=== PATIENT | male | born 1955 | race Caucasian/White ===

== ENCOUNTER → 2018-11-11 12:42 | Outpatient (POV) | payer MEDICARE, SELFPAY ==
--- NOTE | 2018-11-11 13:09 | HMH.PAINSOAP ---
[facility] Pain Management SOAP Note Subjective:: Patient is a pleasant 63-year-old white male who we are treating for pain secondary to degenerative disc disease lumbar spine with lumbar facet arthropathy lumbar spondylosis and lumbar postlaminectomy syndrome. Patient has an intrathecal pain pump. He is currently at 6 mg of morphine a day. He states it helps his pain significantly he rates his pain a 5 out of 10. He does have to sometimes take a Tylenol. He is being filled with basic home infusion we will be switching him to advanced infusion solutions. Patient is aware of this. ROS General: no recent weight change, no fever, no sleep disturbances Respiratory: no cough, no shortness of air, no recurring pulmonary infections Cardiovascular/Peripheral Vascular: No chest pain, No palpitations, no edema, no shortness of breath. Gastrointestinal: no incontinence, normal bowel movements reported Genitourinary: no incontinence Musculoskeletal: Back pain, leg pain Psychiatric: normal mood/ affect Neurological: [denies weakness in extremities], [denies balance issues] Objective:: Physical Exam General: Alert and oriented x3, no acute distress, pleasant and cooperative, [on room air] Lungs: Resps E/U, Symmetrical chest expansion, Eyes: PERRL Musculoskeletal: Flexion and extension of lumbar spine somewhat guarded secondary to pain, deep tendon reflexes normal, strength in upper and lower extremities [5/5], [abnormal gait noted] Neurological: speech clear, physician compensation analyst equal, no gross sensory deficits Assessment:: Degenerative disc disease lumbar spine with lumbar radiculopathy and postlaminectomy syndrome Plan:: We will switch the patient over to [facility]. We will send her for drug screen today. We will also increase his concentration to 30 mg/mL of morphine at his next intrathecal pain pump refill. Patient will be seen again in [address] Benavides has reviewed this note and agrees with this plan of care. This note was dictated using voice recognition software and may contain errors or omissions
--- NOTE | 2018-11-11 13:12 | P.CONS_ITS ---
[facility] Pain Management SOAP Note Subjective:: Patient is a pleasant 63-year-old white male who we are treating for pain secondary to degenerative disc disease lumbar spine with lumbar facet arthropathy lumbar spondylosis and lumbar postlaminectomy syndrome. Patient has an intrathecal pain pump. He is currently at 6 mg of morphine a day. He states it helps his pain significantly he rates his pain a 5 out of 10. He does have to sometimes take a Tylenol. He is being filled with basic home infusion we will be switching him to advanced infusion solutions. Patient is aware of this. ROS General: no recent weight change, no fever, no sleep disturbances Respiratory: no cough, no shortness of air, no recurring pulmonary infections Cardiovascular/Peripheral Vascular: No chest pain, No palpitations, no edema, no shortness of breath. Gastrointestinal: no incontinence, normal bowel movements reported Genitourinary: no incontinence Musculoskeletal: Back pain, leg pain Psychiatric: normal mood/ affect Neurological: [denies weakness in extremities], [denies balance issues] Objective:: Physical Exam General: Alert and oriented x3, no acute distress, pleasant and cooperative, [on room air] Lungs: Resps E/U, Symmetrical chest expansion, Eyes: PERRL Musculoskeletal: Flexion and extension of lumbar spine somewhat guarded secondary to pain, deep tendon reflexes normal, strength in upper and lower extremities [5/5], [abnormal gait noted] Neurological: speech clear, linux network engineer equal, no gross sensory deficits Assessment:: Degenerative disc disease lumbar spine with lumbar radiculopathy and postlaminectomy syndrome Plan:: We will switch the patient over to AIS. We will send her for drug screen today. We will also increase his concentration to 30 mg/mL of morphine at his next intrathecal pain pump refill. Patient will be seen again in [address] Benavides has reviewed this note and agrees with this plan of care. This note was dictated using voice recognition software and may contain errors or omissions
[2018-11-11 13:36] VITALS: BP 133/78; PULSE 79; RESP 18; O2SAT 98; BMI 23.7
[2018-11-11 14:18] LABS: Amphetamine/Metha Screen,Urine Negative ng/mL (<1000); Barbiturates Screen,Urine Negative ng/mL (<200); Benzodiazepines Screen,Urine Negative ng/mL (<200); Cannabinoid Screen,Urine Negative ng/mL (<50); Cocaine Screen,Urine Negative ng/mL (<300); Methadone Screen,Urine Negative ng/mL (<300); Opiate Screen,Urine Positive ng/mL (<300); Phencyclidine Screen,Urine Negative ng/mL (<25)
[2018-11-18 12:09] LABS: Codeine Negative (Cutoff=100); Hydrocodone Negative (Cutoff=100); Hydromorphone Negative (Cutoff=100); Morphine Positive (.)
[2018-11-18 12:58] LABS: Opiates Positive (.)
== END ==
PROVIDERS: Visit Provider Clinical Nurse Specialist Family Health
DX: M51.16 Intervertebral disc disorders with radiculopathy, lumbar region (principal); M96.1 Postlaminectomy syndrome, not elsewhere classified; Z79.899 Other long term (current) drug therapy
CPT/HCPCS: 80305; 80361; 80365; 99212; G0480

== ENCOUNTER → 2019-05-27 11:18 | Outpatient (POV) | payer MEDICARE, SELFPAY ==
[2019-05-27 12:43] VITALS: BP 117/83; PULSE 66; RESP 18; O2SAT 99; BMI 22.4
--- NOTE | 2019-05-27 12:52 | HMH.PAINSOAP ---
[facility] Pain Management SOAP Note Subjective:: Patient is a pleasant 64-year-old white male who presents today for a six-month follow-up visit. Patient has a intrathecal pain pump going at 0.78 mg every 2 hours for total daily dose of 9.36 mg of morphine a day he rates his pain a 6 out of 10 and states overall is doing well patient denies side effects to his medication. [facility] #[id number] reviewed and appropriate. Patient can continue with his home refill he is been instructed to call our office if he has any issues. ROS General: no recent weight change, no fever, no sleep disturbances Respiratory: no cough, no shortness of air, no recurring pulmonary infections Cardiovascular/Peripheral Vascular: No chest pain, No palpitations, no edema, no shortness of breath. Gastrointestinal: no new onset incontinence, normal bowel movements reported Genitourinary: no new onset incontinence Musculoskeletal: Back pain, leg pain Psychiatric: normal mood/ affect Neurological: [denies new onset weakness in extremities], [denies new onset balance issues] Objective:: Physical Exam General: Alert and oriented x3, no acute distress, pleasant and cooperative, [on room air] Lungs: Resps E/U, Symmetrical chest expansion, Eyes: PERRL Musculoskeletal: Flexion and extension of lumbar spine somewhat guarded secondary to pain, deep tendon reflexes normal, strength in upper and lower extremities [5/5], [abnormal gait noted] Neurological: speech clear, grease refining supervisor equal, no gross sensory deficits Assessment:: Degenerative disc disease lumbar spine with lumbar radiculopathy post laminectomy syndrome Plan:: We will see the patient back in 6 months reassess his symptoms at that time he is been instructed to call the office if he has any issues prior to his next appointment. Dr. Benavides has reviewed this note and agrees with this plan of care. This note was dictated using voice recognition software and may contain errors or omissions [facility] History I have reviewed the patient's past medical history: Yes *Have you ever received a pneumonia vaccine?: Yes *Have you received a flu vaccine this season?: Yes - *Social History *Occupational Status:: other *Travel in the last 8 weeks: None Family Hx:: Non-contributory
--- NOTE | 2019-05-27 12:56 | P.CONS_ITS ---
[facility] Pain Management SOAP Note Subjective:: Patient is a pleasant 64-year-old white male who presents today for a six-month follow-up visit. Patient has a intrathecal pain pump going at 0.78 mg every 2 hours for total daily dose of 9.36 mg of morphine a day he rates his pain a 6 out of 10 and states overall is doing well patient denies side effects to his medication. [facility] #[id number] reviewed and appropriate. Patient can continue with his home refill he is been instructed to call our office if he has any issues. ROS General: no recent weight change, no fever, no sleep disturbances Respiratory: no cough, no shortness of air, no recurring pulmonary infections Cardiovascular/Peripheral Vascular: No chest pain, No palpitations, no edema, no shortness of breath. Gastrointestinal: no new onset incontinence, normal bowel movements reported Genitourinary: no new onset incontinence Musculoskeletal: Back pain, leg pain Psychiatric: normal mood/ affect Neurological: [denies new onset weakness in extremities], [denies new onset balance issues] Objective:: Physical Exam General: Alert and oriented x3, no acute distress, pleasant and cooperative, [on room air] Lungs: Resps E/U, Symmetrical chest expansion, Eyes: PERRL Musculoskeletal: Flexion and extension of lumbar spine somewhat guarded se condary to pain, deep tendon reflexes normal, strength in upper and lower extremities [5/5], [abnormal gait noted] Neurological: speech clear, agency appointments supervisor equal, no gross sensory deficits Assessment:: Degenerative disc disease lumbar spine with lumbar radiculopathy post laminectomy syndrome Plan:: We will see the patient back in 6 months reassess his symptoms at that time he is been instructed to call the office if he has any issues prior to his next appointment. Dr. Benavides has reviewed this note and agrees with this plan of care. This note was dictated using voice recognition software and may contain errors or omissions [facility] History I have reviewed the patient's past medical history: Yes *Have you ever received a pneumonia vaccine?: Yes *Have you received a flu vaccine this season?: Yes - *Social History *Occupational Status:: other *Travel in the last 8 weeks: None Family Hx:: Non-contributory
== END ==
PROVIDERS: PCP Internal Medicine Addiction Medicine; Visit Provider Clinical Nurse Specialist Family Health
DX: M51.16 Intervertebral disc disorders with radiculopathy, lumbar region (principal); M96.1 Postlaminectomy syndrome, not elsewhere classified
CPT/HCPCS: 99212

== ENCOUNTER → 2019-12-01 14:24 | Outpatient (POV) | payer MEDICARE, OTHER, SELFPAY ==
[2019-12-01 15:07] VITALS: BP 134/83; PULSE 82; RESP 18; TEMP 36.6; O2SAT 99; BMI 31.3
--- NOTE | 2019-12-02 07:43 | P.PCN_ITS ---
- Procedure Date: 12/01/19 Time: 15:00 Anesthesiologist:: Noris Pandey APRN Complications:: None Pre-procedure Diagnosis:: Degenerative disc disease lumbar spine with lumbar radiculopathy and spinal stenosis with neurogenic claudication and postlaminectomy syndrome Post-procedure Diagnosis:: Same Indications for Procedure:: Patient is a pleasant 64-year-old white male who presents today for intrathecal pain pump adjustment. He is doing a home refill program and doing well with it. He is currently on a periodic flow every 3 hours. He would like to be switched back to his original 0.78 mg every 2 hours. We will move forward with this. [facility] #[id number] reviewed and appropriate. Patient also wants to discuss the mild procedure. Patient and I discussed an epidurogram we will move forward with this. He is not on any anticoagulation therapy. he rates his pain today a 7 out of 10 which is his baseline Physical Exam General: Alert and oriented x3, no acute distress, pleasant and cooperative, [on room air] Lungs: Resps E/U, Symmetrical chest expansion, Eyes: PERRL Musculoskeletal: Flexion and extension of lumbar spine somewhat guarded secondary to pain, deep tendon reflexes normal, strength in upper and lower extremities [5/5], [abnormal gait noted] Neurological: speech clear, commercial fisher equal, no gross sensory deficits Procedure Details:: Informed consent was obtained and the risk and benefits of the procedure were explained to the patient. The patient was taken to the procedure room where noninvasive monitoring was placed including noninvasive blood pressure cuff and pulse oximeter. Patient's pump was interrogated and reprogrammed. The infusion rate was changed to 0.78 mg every 2 hours of morphine. The patient tolerated the procedure well. Plan and Disposition:: We will set the patient up for an epidurogram to see if he may be a mild candidate. He does have pain when he standing and walking. He has weakness in his legs when he is standing for long periods of time. Patient does have the sit down so he does not fall down. I will follow-up with him after this reassess his symptoms at this time. He is instructed to call the office if he has any issues prior to his next appointment. Dr. Benavides has reviewed this note and agrees with this plan of care. This note was dictated using voice recognition software and may contain errors or omissions
== END ==
PROVIDERS: Visit Provider Clinical Nurse Specialist Family Health
DX: M51.16 Intervertebral disc disorders with radiculopathy, lumbar region (principal); M48.062 Spinal stenosis, lumbar region with neurogenic claudication; M96.1 Postlaminectomy syndrome, not elsewhere classified
CPT/HCPCS: 62368; 99212

== ENCOUNTER 2019-12-12 08:52 | Day surgery (SDC) | payer MEDICARE, OTHER, SELFPAY ==
[2019-12-12 08:54] VITALS: BP 148/87; PULSE 57; RESP 18; TEMP 36.7; O2SAT 100; BMI 23.7
[2019-12-12 09:14] VITALS: BP 145/87; PULSE 58; RESP 18
[2019-12-12 09:16] VITALS: BP 144/78; PULSE 59; RESP 18; O2SAT 99
--- NOTE | 2019-12-12 09:26 | HMH.PMPROC ---
- Procedure Date: 12/12/19 Time: 09:26 Anesthesiologist:: Roverto Benavides MD Complications:: None Pre-procedure Diagnosis:: Postlaminectomy syndrome lumbar spine with lumbar radiculopathy symptoms and increasing pain on the right side with neurogenic claudication symptoms and spinal stenosis Post-procedure Diagnosis:: Same Indications for Procedure:: This patient is a pleasant 64-year-old white male who does have an intrathecal morphine pain pump in place. He is doing well with his pump however he does have some increasing pain on the right side of his lower lumbar area. He also has some significant spinal stenosis with neurogenic claudication symptoms. Were symptoms are on the right. We will do a lumbar epidural steroid injection today to see if this helps with his pain symptoms. We will also do a epidurogram to assess levels of stenosis and candidacy for minimally invasive lumbar decompression. Procedure Details:: Lumbar epidural steroid injection under fluoroscopy Informed consent was obtained and the risk and benefits of the procedure was explained to the patient. The patient was taken to the procedure room. The patient was placed prone on the procedure table. The patient was prepped and draped in sterile fashion. C-arm fluoroscopy was used to view the lumbar spine. Skin and subcutaneous tissues were anesthetized using lidocaine. I placed an 18-gauge epidural needle and advanced into the L4-L5 interspace using fluoroscopic guidance and [id number] to air. After confirmation of needle placement in the epidural space with dye I injected 2 mL of lidocaine 1.5% with Depo-Medrol 80 mg. Patient tolerated the procedure well with no complications. Plan and Disposition:: Based on his epidurogram he is not a candidate for minimally invasive lumbar decompression as his lamina have already been removed and the majority of his lumbar spine from previous surgery. Furthermore most of his pain is in the right lower lumbar area and over the right SI joint. If the lumbar epidural steroid injection does not give him adequate relief then we may plan on a right SI joint injection. He does have tenderness over the right SI joint. He has a positive Sherly's test on the right side. Is positive Jhon test on the right side. He has a positive SI joint compression test on the right side. Also he may be a candidate for L4-L5 and L5-S1 facet joint injections on the right side if he still has some residual pain. We will follow-up with him and reevaluate his symptoms and plan on right SI joint injection under fluoroscopy first if he still has pain.
[2019-12-12 09:35] VITALS: BP 135/89; PULSE 55; RESP 20; O2SAT 99
== END 2019-12-12 09:35 | disposition home or self-care (01) ==
LOC: SC.PAINP 08:54
PROVIDERS: PCP Internal Medicine Addiction Medicine; Visit Provider Anesthesiology
DX: M96.1 Postlaminectomy syndrome, not elsewhere classified (principal); M51.16 Intervertebral disc disorders with radiculopathy, lumbar region; M48.062 Spinal stenosis, lumbar region with neurogenic claudication; I10 Essential (primary) hypertension; Z85.46 Personal history of malignant neoplasm of prostate; Z90.79 Acquired absence of other genital organ(s); Z79.899 Other long term (current) drug therapy
CPT/HCPCS: 62323; J1040; Q9966

== ENCOUNTER 2020-02-20 13:51 | Day surgery (SDC) | payer MEDICARE, OTHER, SELFPAY ==
[2020-02-20 14:11] VITALS: BP 137/86; PULSE 61; RESP 18; TEMP 36.9; O2SAT 97; BMI 23.7
[2020-02-20 14:26] VITALS: BP 125/79; PULSE 68; RESP 18; O2SAT 98
[2020-02-20 14:27] VITALS: BP 130/74; PULSE 74; RESP 18; O2SAT 99
--- NOTE | 2020-02-20 14:28 | HMH.PMPROC ---
- Procedure Date: 02/20/20 Time: 14:28 Anesthesiologist:: Roverto Benavides MD Complications:: None Pre-procedure Diagnosis:: Sacroiliitis Post-procedure Diagnosis:: Same Indications for Procedure:: This patient is a pleasant 64-year-old white male who we are treating for low back pain with lumbar radiculopathy symptoms and postlaminectomy syndrome. He does have an intrathecal morphine pain pump. He is doing well with his pump. Most of his pain is on the right side. He is tender over his right SI joint. He did not get any benefit from the lumbar epidural steroid injection. He has a positive Sherly's test on right side. He has a positive Jhon test on right side. Is positive SI joint compression test on right side. We will do a right SI joint injection under fluoroscopy to help him with his pain symptoms. Procedure Details:: Right SI joint injection under fluoroscopy Informed consent was obtained and the risks and benefits of the procedure was going to the patient. Patient was taken to the procedure room. Patient was placed prone on the procedure table. The right hip was prepped using ChloraPrep. The skin and subcutaneous tissues were anesthetized using lidocaine. I placed a 22-gauge spinal needle into the inferior aspect of the right SI joint. Needle placement was confirmed with dye. After this we injected 5 mL bupivacaine 0.25% and Depo-Medrol 40 mg into the right SI joint. The patient tolerated the procedure well with no complication. Plan and Disposition:: We will follow-up with him in 2 weeks. Will reevaluate symptoms at that time.
[2020-02-20 14:38] VITALS: BP 135/80; PULSE 51; RESP 18; O2SAT 97
== END 2020-02-20 14:40 | disposition home or self-care (01) ==
LOC: SC.PAINP 13:52
PROVIDERS: PCP Internal Medicine Addiction Medicine; Visit Provider Anesthesiology
DX: M46.1 Sacroiliitis, not elsewhere classified (principal); I10 Essential (primary) hypertension; Z85.46 Personal history of malignant neoplasm of prostate; Z90.79 Acquired absence of other genital organ(s)
CPT/HCPCS: 27096; G0260; J1040; Q9966

== ENCOUNTER → 2021-04-25 11:16 | Outpatient (POV) | payer MEDICARE, OTHER, SELFPAY ==
[2021-04-25 11:40] VITALS: BP 155/96; PULSE 68; RESP 18; O2SAT 98; BMI 23.0
--- NOTE | 2021-04-25 11:45 | HMH.PAINSOAP ---
[facility] Pain Management SOAP Note Subjective:: Patient is a 65-year-old white male who presents today for follow-up. Patient is an intrathecal home refill patient. He does have morphine at 9.36 mg/day, periodic flow at 0.78 mg every 2 hours. Patient says that he has been told by Dr. Benavides that he is at the highest dose that he can possibly go with morphine and that he does not have any other options. Patient and I did discuss that Dr. Benavides has likely inform the patient that he is at a very high dose of medication with his intrathecal therapy, however, there are other medications that we may possibly use in. Patient is continuing to work and does continue to have significant pain. He says that he did chop wood over the weekend and has worsening pain in his low back. He does rate his pain an 8 out of 10 today. He denies any side effects. He does not want any changes today. Review of Systems General: No recent weight changes, no fever, no sleep disturbances Respiratory: No cough, no shortness of air, no recurring pulmonary infections Cardiovascular/peripheral vascular: No chest pain, no palpitations, no edema, no shortness of breath Gastrointestinal: No new onset incontinence, normal bowel movements reported Genitourinary: No new onset incontinence Musculoskeletal: Low back pain Psychiatric: [Normal mood/affect] Neurological: [Denies weakness in extremities], [denies balance issues] Objective:: Physical exam General: Alert and oriented x3, no acute distress, pleasant and cooperative Lungs: Respirations even and unlabored, symmetrical chest expansion Eyes: PERRL Musculoskeletal: Flexion and extension of lumbar [spine] somewhat guarded secondary to pain, [antalgic gait noted] Neurological: Speech clear, no gross sensory deficit Assessment:: Degenerative disc disease lumbar spine with lumbar radiculopathy symptoms Plan:: Patient does not want any changes today. We did discuss possible change of medication in the pump. He is at a high dose of morphine with 30 mg concentration. He will contact clinic if he decides to undergo change out of medicine. He has been instructed to contact clinic if he has any concerns for his next appointment. He is routinely drug screen to [employer]. Risks and benefits of the medication have been explained in detail to the patient. The patient does understand the risk of dependence on the medication when given over a prolonged period. Patient has been advised of risks of oversedation with the prescribed medication. Narcan has been offered to the paitent in the event of oversedation. Patient has been advised that a family member should also be educated regarding administration of Narcan. The patient has been advised to consult with his/her primary care provider and pharmacist regarding drug-drug interaction of medications currently prescribed. Patient has been prescribed a controlled substance after being counseled on the medication, medication safety, and possible side effects. [facility] report has been obtained and reviewed prior to prescription and found to be appropriate. Opioid contract was reviewed and signed by the patient, and that they have agreed to all of the terms set forth by our compliance program. Patient has been instructed to contact the clinic with any concerns before the next appointment. Dr. Benavides has reviewed this note and agrees with this plan of care. This note was dictated using voice recognition software and make contain errors or omissions. [facility] History I have reviewed the patient's past medical history: Yes Medical History: Reports:: Cancer (prostate) Denies:: Diabetes Mellitus Type 1, Diabetes Mellitus Type 2, MRSA, Seizures *Have you ever received a pneumonia vaccine?: Yes *Have you received a flu vaccine this season?: No Amputation: No Fractures: No - *Social History Smoking Status: Never smoker Alcohol Intake: current Alcohol Intake Frequen
== END ==
PROVIDERS: Visit Provider Clinical Nurse Specialist Family Health
DX: M51.16 Intervertebral disc disorders with radiculopathy, lumbar region (principal)
CPT/HCPCS: 99212; G0463

== ENCOUNTER 2023-04-17 08:09 | Day surgery (SDC) | payer MEDICARE, OTHER, SELFPAY ==
[2023-04-17 08:18] VITALS: BP 132/95; PULSE 73; RESP 20; TEMP 36.8; O2SAT 96; BMI 23.7
--- NOTE | 2023-04-17 09:15 | MR_ITS ---
FINAL REPORT CLINICAL HISTORY: DIGENERATIVE DISC DISEASE left arm pain tingling in finger of left hand FINDINGS: Multiplanar MR imaging of the cervical spine was performed without contrast. Motion on many of the images decreases exam sensitivity. On the sagittal T2-weighted images, disc degeneration is seen throughout. There is no evidence of fracture. The vertebral alignment is normal. The cervical spinal cord has an unremarkable appearance without evidence of mass, edema or syrinx. The cervicomedullary junction is normal. C2-3: There are uncovertebral osteophytes. C3-4: There is an annular bulge with uncovertebral osteophytes. There is moderate bilateral neural foraminal narrowing. C4-5: There is an annular bulge with uncovertebral osteophytes. There is severe bilateral neural foraminal narrowing. There is mild central canal stenosis with an AP thecal sac diameter of 8 mm. C5-6: There is a disc osteophyte complex with a left foraminal disc protrusion causing left C6 nerve root impingement. There is severe bilateral neural foraminal narrowing. C6-7: There is a disc osteophyte complex with severe bilateral neural foraminal narrowing. C7-T1: There is an annular bulge with moderate bilateral neural foraminal narrowing. There is facet arthropathy on the left with adjacent soft tissue edema. IMPRESSION: Left foraminal disc protrusion at C5-C6 causes left C6 nerve root impingement. Multilevel areas of neural foraminal narrowing and central canal stenosis as described. Reviewed, Interpreted and Dictated by Kd Funk III, MD Transcribed by Bertrand Lopez Authenticated and [facility]
[2023-04-17 10:43] VITALS: BP 141/89; PULSE 70; RESP 18; O2SAT 97
[2023-04-17 10:45] VITALS: BP 141/89; PULSE 69; RESP 18; O2SAT 97
[2023-04-17 10:50] VITALS: BP 147/98; PULSE 56
--- NOTE | 2023-04-17 10:52 | EXP.PAIN.PRO ---
Procedure Date: 04/17/23 Time: 10:45 Anesthesiologist:: Nimesh Boyle CRNA Complications:: None Pre-procedure Diagnosis:: Degenerative disc lumbar spine multilevels. Lumbar radiculopathy. Cervical neck pain. Cervical radiculopathy. Post-procedure Diagnosis:: Same. Indications for Procedure:: Patient is a very pleasant 67-year-old male that comes our clinic today for intrathecal pain pump medication removal for the purpose of cervical MRI today. Patient doing very well with his current settings. He has managed with morphine sulfate 30 mg/mL at 9.3600 mg/day. Procedure Details:: Details of procedure explained the patient. The patient taken the procedure room placed in the supine position on the fluoroscopy table. The pump was interrogated. The pump is accessed with ease using 22-gauge inch and half needle and fluoroscopy guidance. 11 mL of solution was withdrawn and labeled. Patient will return post MRI for refill. Patient returns to the procedure clinic for intrathecal pain pump filling. Pump was accessed with ease using fluoroscopy guidance and a 22-gauge inch needle. The pump was filled with 11 mL of solution containing morphine sulfate 30 mg/mL using fluoroscopy guidance. Pump rate will remain the same. 9.3600 mg day. Plan and Disposition:: She tolerated procedure without difficulty. No complications. Patient was discharged without incident.
== END 2023-04-17 10:51 | disposition home or self-care (01) ==
PROVIDERS: PCP Internal Medicine Addiction Medicine; Visit Provider Nurse Anesthetist, Certified Registered
DX: M51.16 Intervertebral disc disorders with radiculopathy, lumbar region (principal); M54.12 Radiculopathy, cervical region; Z97.8 Presence of other specified devices
CPT/HCPCS: 72141; 76376; 95991

== ENCOUNTER → 2023-08-30 14:47 | Outpatient (POV) | payer MEDICARE, OTHER, SELFPAY ==
[2023-08-30 16:09] VITALS: BP 133/86; PULSE 61; RESP 18; O2SAT 98; BMI 23.7
--- NOTE | 2023-08-30 16:28 | EXP.PAIN.SOA ---
[facility] Pain Management SOAP Note Subjective:: Patient is a pleasant 68-year-old male who presents today for MRI follow-up. We are currently treating the patient for degenerative disc disease of cervical and lumbar spine with cervical and lumbar radiculopathy symptoms, chronic pain syndrome lumbar postlaminectomy syndrome. Today he rates his pain a 7 out of 10. Patient states that he continues to have chronic pain in his overall but he is experiencing more pain in his neck with radiating symptoms down his entire left arm. Patient describes this as a aching burning sensation with occasional electrical shock. He does state that he frequently has weakness in his hand and will drop staff. He does state the pain is interfering with his ability to perform activities of daily living such as cooking and cleaning. Patient does have a intrathecal pain pump of morphine 30 mg/mL with a daily dose of 9.36 mg/day. Patient denies any side effects from this medication however states that it is at its end-of-life. Patient states that he has already reviewed over the risk and benefits of having this pump replaced. He states he would like to proceed forward with this option. He states this is his third pump and that it does work well and helps his pain on a day-to-day basis. Patient does currently have the pump in his left abdomen and is been experiencing more seroma regarding it. Patient states that he would prefer that the next pump still be placed in his abdomen but is okay with putting it on the right. Patient does also state when he originally had this pump placed he did end up not feeling like the pump was working well and ended up going and getting additional medication which ended up resulting in him overdosing and having to call the ambulance. Patient does state he still has concerns regarding this episode and that he would like to be placed in overnight observation as a precaution to make sure this does not happen again. Patient does also state he has been to see his neurosurgeon who was stating that he needed cervical surgery however at this time he would like to hold off on this option. His Ramo has been reviewed and is appropriate. Review of Systems: General: No recent weight changes, no fever, no sleep disturbances Respiratory: No cough, no shortness of air, no recurring pulmonary infections Cardiovascular/peripheral vascular: No chest pain, no palpitations, no edema, no shortness of breath Gastrointestinal: No new onset incontinence, normal bowel movements reported Genitourinary: No new onset incontinence Musculoskeletal: Neck pain, left arm pain Psychiatric: [Normal mood/affect] Neurological: [Denies weakness in extremities], [denies balance issues] Objective:: Physical Exam: General: Alert and oriented x3, no acute distress, pleasant and cooperative Lungs: Respirations even and unlabored, symmetrical chest expansion Eyes: PERRL Musculoskeletal: Flexion and extension of cervical [spine] somewhat guarded secondary to pain, [antalgic gait noted] positive Spurling's test Neurological: Speech clear, no gross sensory deficit FINAL REPORT CLINICAL HISTORY: DIGENERATIVE DISC DISEASE left arm pain tingling in finger of left hand FINDINGS: Multiplanar MR imaging of the cervical spine was performed without contrast. Motion on many of the images decreases exam sensitivity. On the sagittal T2-weighted images, disc degeneration is seen throughout. There is no evidence of fracture. The vertebral alignment is normal. The cervical spinal cord has an unremarkable appearance without evidence of mass, edema or syrinx. The cervicomedullary junction is normal. C2-3: There are uncovertebral osteophytes. C3-4: There is an annular bulge with uncovertebral osteophytes. There is moderate bilateral neural foraminal narrowing. C4-5: There is an annular bulge with uncovertebral osteophytes. There is severe bilateral neural foraminal narrowing. There is mild central canal stenosis with an AP thecal sac diameter of 8 mm. C5-6: There is a disc osteophyte complex with a left foraminal disc protrusion causing left C6 nerve root impingement. There is severe bilateral neural foraminal narrowing. C6-7: There is a disc osteophyte complex with severe bilateral neural foraminal narrowing. C7-T1: There is an annular bulge with moderate bilateral neural foraminal narrowing. There is facet arthropathy on the left with adjacent soft tissue edema. IMPRESSION: Left foraminal disc protrusion at C5-C6 causes left C6 nerve root impingement. Multilevel areas of neural foraminal narrowing and central canal stenosis as described. Reviewed, Interpreted and Dictated by Kd Funk III, MD Transcribed by Bertrand Lopez Authenticated and [facility] Assessment:: Degenerative disc disease of cervical and lumbar spine with cervical and lumbar radiculopathy symptoms, chronic pain syndrome, lumbar postlaminectomy syndrome Plan:: Patient is experiencing worsening pain in his neck with radiating symptoms to his left arm down to his hand. Patient did have limited range of motion of his cervical spine along with a positive Spurling's test. I have discussed with patient that he may benefit from a cervical epidural steroid injection. Risk and benefits were discussed with the patient and he would like to proceed forward with this plan of care. Patient is not on any blood thinners. Patient's imaging did show a left C6 nerve root impingement. I have also reviewed over the risk and benefits of the intrathecal pain pump replacement and he would like to proceed forward with this plan of care. I will order the patient a compounded cream. Patient will be scheduled for a GUILLERMINA C5-C6 under fluoroscopy and intrathecal pain pump replacement due to end-of-life. We will contact the patient for time and date of his intrathecal pain pump replacement once we have insurance approval. Patient has been instructed to contact the clinic with any concerns before the next appointment. Dr. Benavides has reviewed this note and agrees with this plan of care. This note was dictated using voice recognition software and make contain errors or omissions. -- It Is medically necessary for this patient to continue to have their intrathecal pump refilled at regular intervals. This patient had an intrathecal pain pump implanted after meeting criteria of chronic intractable pain for greater than 3 months and failing conservative treatments. Patient has committed and been compliant to the treatment plan and all planned follow up care. Since implantation of the intrathecal pain pump, the patient has had decreased pain and been more functional. Oral medications have been reduced including intake of oral opioids. Patient continues to do well with intrathecal therapy with decrease in pain symptoms and increase in functional status. Stopping intrathecal medications can lead to life threatening withdrawal, seizures, cardiac arrest, severe pain, and possible . Pumps that are not refilled at regular intervals can be damages and cause and need for replacement. We continually titrate dose and concentration to optimize pain relief and function. We are limited in concentration for certain drugs to safely deliver medications through the pump and stay within the recommendations from the Polyanalgesic Consensus Committee Guidelines. Depending on dose and concentration these pumps may need to be refilled sooner than 3 months as we titrate. [facility] Disclaimer: The information contained in this section may have been updated after the patient was seen, as this information can be updated by other users. Social History (Updated 04/17/23 @ 08:23 by Bhavana Walker RN) Smoking Status: Never smoker alcohol intake: current current occupational status: retired Travel in the last 8 weeks: None caffeine: Yes
== END ==
PROVIDERS: Visit Provider Nurse Practitioner Family
DX: M50.122 Cervical disc disorder at C5-C6 level with radiculopathy (principal); M51.16 Intervertebral disc disorders with radiculopathy, lumbar region; M96.1 Postlaminectomy syndrome, not elsewhere classified; G89.4 Chronic pain syndrome; Z97.8 Presence of other specified devices
CPT/HCPCS: 99212; G0463

== ENCOUNTER 2023-09-25 09:24 | Day surgery (SDC) | payer MEDICARE, OTHER, SELFPAY ==
[2023-09-25 10:43] VITALS: BP 133/90; PULSE 58; RESP 16; TEMP 36.8; O2SAT 99; BMI 23.7
[2023-09-25 11:04] VITALS: BP 142/99; PULSE 76; RESP 18; O2SAT 98
[2023-09-25] MEDS: methylPREDNISolone ACETATE 80MG/ML VIAL 80 MG (11:04)
[2023-09-25 11:05] VITALS: BP 142/99; PULSE 75; RESP 18; O2SAT 98
[2023-09-25 11:08] VITALS: BP 161/85; PULSE 56; RESP 18; O2SAT 99
--- NOTE | 2023-09-25 11:09 | P.PCN_ITS ---
Procedure Date: 09/25/23 Time: 11:00 Anesthesiologist:: Nimesh Boyle CRNA Complications:: None Pre-procedure Diagnosis:: Degenerative disc cervical spine multilevels. Cervical radiculopathy. Post-procedure Diagnosis:: Same. Indications for Procedure:: Patient is a very pleasant 68-year-old male comes our clinic today for cervical epidural steroid injection. Patient reporting posterior cervical pain as well as bilateral arm radiculopathy left greater than right. Procedure Details:: Procedure:Cervical epidural steroid injection Informed consent was obtained and the risks and benefits of the procedure were explained to the patient. The patient was taken to the procedure room and noninvasive monitors placed, including noninvasive blood pressure cuff and pulse oximeter. The neck was prepped using Chloraprep as a cleansing solution. The C6- C7 interspace was viewed using fluroscopy. The skin and subcutaneous tissues were anesthetized using lidocaine 1.5% and a 25-gauge needle. After this an 18- gauge Touhy epidural needle was placed into the C6-C7 interspace under fluroscopy guidance and advanced using loss of resistance to air until the epidural space was encountered. After confirmation of needle placement in the epidural space using contrast dye, a solution containing normal saline, 2 mL and Depo-Medrol 80 mg was incrementally injected into the cervical epidural space.~ The patient tolerated the procedure well with no complications. The patient was observed in the Pain Clinic and then discharged home neurologically intact. Plan and Disposition:: Patient was discharged without incident.
[2023-09-25] MEDS: IOPAMIDOL-200 (41%);10ML VIAL 10 ML IV (11:12)
== END 2023-09-25 11:08 | disposition home or self-care (01) ==
PROVIDERS: PCP Internal Medicine Addiction Medicine; Visit Provider Nurse Anesthetist, Certified Registered
DX: M50.123 Cervical disc disorder at C6-C7 level with radiculopathy (principal)
CPT/HCPCS: 62321; J1040; Q9966

== ENCOUNTER 2023-10-02 07:12 | Day surgery (SDC) | payer MEDICARE, OTHER, SELFPAY ==
[2023-10-01 09:13] VITALS: BMI 23.7
[2023-10-02] VITALS (11 sets, daily range): BP systolic 102–158; BP diastolic 68–92; PULSE 1–85; RESP 8–18; TEMP 36.1–36.4; O2SAT 94–100
[2023-10-02] MEDS: VANCOMYCIN/WATER FOR INJ (PEG) 1.25 GM/250 ML PIGGYBACK IV (07:33)
[2023-10-02] MEDS: LACTATED RINGERS 1000ML 1,000 ML 25 ML IV (07:33)
[2023-10-02 07:47] LABS: Basophils # 0.1 K/mm3 (0-0.2); Basophils % 0.8 % (0.1-2.0); Eosinophils # 0.1 K/mm3 (0.0-0.4); Eosinophils % 1.4 % (0.1-12.0); Hematocrit 44.3 % (42.0-52.0); Hemoglobin 14.2 g/dL (14.1-18.0); Lymphocytes % 23.8 % (10-50); Mean Corpuscular HGB Conc 32.1 g/dL (31.8-35.4); Mean Corpuscular Volume 90.3 fl (80-94); Mean Platelet Volume 8.2 fl (7.4-10.4); Monocytes # 0.4 K/mm3 (0.1-1.0); Monocytes % 4.7 % (1.7-9.3); Neutrophils # 5.7 K/mm3 (1.8-7.8); Neutrophils % 69.3 % (37.0-80.0); Platelet Count 261 K/mm3 (142-424); Red Cell Distribution Width 13.3 % (11.5-17.5); White Blood Count 8.2 K/mm3 (4.8-10.8)
[2023-10-02 07:54] LABS: Chloride 107 mmol/L (98-107); Potassium 3.9 mmoL/L (3.5-5.1); Sodium 139 mmol/L (136-145)
[2023-10-02 07:57] LABS: Anion Gap 5.9 mEq/L (5-15); Blood Urea Nitrogen 15 mg/dl (9-20); Calcium 10.2 mg/dl (8.4-10.2); Carbon Dioxide 30 mmol/L (22.0-30.0); Creatinine Clearance Estimated 78 mL/min (50-200); Estimated Glomerular Filt Rate 112 ml/min (>60); GFR (African American) 135 ML/MIN (>60); Glucose 104 mg/dl (74-100)
[2023-10-02 07:59] LABS: Barbiturates Screen,Urine Negative ng/ml (<200)
[2023-10-02 08:00] LABS: Amphetamine/Metha Screen,Urine Negative ng/ml (<1000); Benzodiazepines Screen,Urine Negative ng/ml (<200)
[2023-10-02 08:01] LABS: Cannabinoid Screen,Urine Negative ng/ml (<50); Cocaine Screen,Urine Negative ng/ml (<300)
[2023-10-02 08:02] LABS: Methadone Screen,Urine Negative ng/ml (<300)
[2023-10-02 08:03] LABS: Opiate Screen,Urine Positive ng/ml (<300); Phencyclidine Screen,Urine Negative ng/ml (<25)
[2023-10-02] MEDS: LIDOCAINE 1% W/EPI 1:100,000 20ML VIAL 40 ML (09:00)
--- NOTE | 2023-10-02 09:03 | P.PNANES_ITS ---
[facility] Disclaimer: The information contained in this section may have been updated after the patient was seen, as this information can be updated by other users. Medical History No significant past medical history Surgical History History of back surgery Family History Other Prostate cancer Social History Smoking Status: Never smoker alcohol intake: never substance use type: denies use current occupational status: disabled Travel in the last 8 weeks: None caffeine: Yes [facility] Anesthesia Checklist Patient Identification Patient Identification: Arm Band and Verbal (Name & ) Structural Data Admitted From: Home Planned Operative Procedure/s: IPPP Consent for Planned Operative Procedure(s) Verified: Yes NPO Status Verified Time NPO: 00:00 Additional verifications Anesthesia Reactions: No Hx Blood Transfusions: No Blood Transfusion Reaction: No Airway Assessment Mallampati Score:: Class II C-Spine Mobility Assessed: Yes TMJ Mobility Assessed: Yes Dentition: Poor Dentition Neurological Assessment Level of Consciousness: Awake Hx Seizures: No Numbness or tingling in extremities: No Anesthesia Plan Anesthesia Risk discussed: Yes Anesthesia Plan: Verified ASA Class: I Anesthesia Type: MAC
[2023-10-02] MEDS: SODIUM CHLORIDE 0.9% 20ML VIAL 40 ML IV (09:05)
[2023-10-02] MEDS: GENTAMICIN 80 MG/2 ML VIAL (09:05)
[2023-10-02] MEDS: MORPHINE 4MG/ML SYRINGE 4 MG IV (10:37)
--- NOTE | 2023-10-02 13:04 | EXP.OP.NOTE ---
Date of procedure: 10/02/23 Pre-op Diagnosis:: Degenerative disc disease of lumbar spine with lumbar radiculopathy symptoms with postlaminectomy syndrome lumbar spine and nonfunctioning intrathecal pain pump system Post-op Diagnosis:: Same Procedure performed:: Replacement pain pump system with replacement of pain pump generator and new tunneled intrathecal catheter Surgeon:: Roverto Benavides MD SOLAR ELECTRIC/PHOTOVOLTAIC INSTALLER:: Wes Munoz Anesthesia: MAC Estimated blood loss (mL): 5 Clinical Note:: This patient is a pleasant 68-year-old white male who we are treating for degenerative disc disease of lumbar spine with lumbar radiculopathy symptoms and postlaminectomy syndrome lumbar spine. He has a Flowonix pain pump system in place. He is not getting adequate pain relief. We are replacing his pain pump system with a Medtronic system. Will replace pain pump generator today and place a new tunneled intrathecal catheter. We will decrease his concentration to intrathecal morphine 15 mg/mL and start him at 4.5 mg/day with PTM boluses of 0.4 mg up to 4 times a day with a 6-hour lockout. Operative findings:: None Operative note:: Informed consent was obtained risk and benefits of the procedure were explained to the patient. The patient was taken to the operating room placed in a right lateral decubitus position. He was prepped and draped in sterile fashion. The skin and subcutaneous tissues overlying the pain pump generator were anesthetized using lidocaine. I made an incision dissected out the pain pump generator. There is a lot of brownish fluid in the pocket. It did not have a foul odor and did not appear to be infected. We cleaned out the pocket. We disconnected the catheter from the pump. We tied off the remaining catheter with 0 silk ties x 3. C-arm fluoroscopy was used to view the lumbar spine. The skin and subcutaneous tissues adjacent to the lumbar spine were anesthetized using lidocaine. I made incision dissected down to the lumbar paraspinous fascia. A 17-gauge spinal needle was inserted and advanced into the L3-L4 interspace until clear CSF was obtained. After this intrathecal catheter was inserted and advanced very easily to the T12 vertebral body. We are unable to advance any further. The catheter was found to be posterior and midline. The catheter was secured to the fascia with an anchor device and 2-0 Prolene. I tunneled the catheter from the back to the pump pocket and attached catheter to the pump. We filled the pump with 20 mL of intrathecal morphine 15 mg/mL. The pump was placed in the pocket with an antibiotic pouch. Both incisions were then closed with 2-0 Vicryl followed by jeimy. Patient was placed in an abdominal binder taken recovery in stable condition. The patient tolerated the procedure well with no complications. Pump refill needs to be on before November 14, 2023. Will follow-up with this patient in 1 week for reprogramming and wound check. Will follow-up in 2 to 3 weeks for staple removal. Condition: stable Disposition: PACU Complications:: None
== END 2023-10-02 11:22 | disposition home or self-care (01) ==
PROVIDERS: Visit Provider Anesthesiology
PROC: (CPT 62350; principal; 2023-10-02 08:30)
DX: M51.16 Intervertebral disc disorders with radiculopathy, lumbar region (principal); M96.1 Postlaminectomy syndrome, not elsewhere classified; T85.698A Other mechanical complication of other specified internal prosthetic devices, implants and grafts, initial encounter
CPT/HCPCS: 62350; 62362; 80048; 80307; 85025; 96374; C1755; C1772; J2704

== ENCOUNTER 2023-10-11 09:41 | Outpatient (POV) | payer MEDICARE, OTHER, SELFPAY ==
[2023-10-11 09:50] VITALS: BP 140/90; PULSE 69; RESP 18; O2SAT 100; BMI 23.7
--- NOTE | 2023-10-11 10:55 | EXP.PAIN.PRO ---
Procedure Date: 10/11/23 Time: 10:15 Anesthesiologist:: Ninoska Kumar APRN Complications:: None Pre-procedure Diagnosis:: Degenerative disc disease of cervical and lumbar spine with cervical and lumbar radiculopathy symptoms, lumbar postlaminectomy syndrome, chronic pain syndrome Post-procedure Diagnosis:: Same Indications for Procedure:: Patient is a pleasant 68-year-old male who presents today for 1 week follow-up from his intrathecal pump replacement on 10/02/2023. Today he rates his pain a 7 out of 10. Patient denies any new trauma or injury. He does state that he has done well following his surgical procedure. He is currently managed with morphine 15 mg/mL with a daily dose of 4.503 mg/day. He denies any side effects from this medication. This is dropped by 50% due to the pump changed out. His Ramo has been reviewed and is appropriate. Physical Exam: General: Alert and oriented x3, no acute distress, pleasant and cooperative Lungs: Respirations even and unlabored, symmetrical chest expansion Eyes: PERRL Musculoskeletal: Flexion and extension of lumbar [spine] somewhat guarded secondary to pain, [antalgic gait noted] Neurological: Speech clear, no gross sensory deficit Skin: Incision sites are clean, dry, well-approximated with minimal erythema noted, jeimy intact Procedure Details:: Informed consent was obtained and the risk and benefits of the procedure were explained to the patient. Patient was taken to the procedure room where noninvasive monitoring was placed including noninvasive blood pressure cuff and pulse oximeter. Patient's pump was interrogated and was reprogrammed to morphine 4.96 mg/day. The patient tolerated the procedure well with no complications. Plan and Disposition:: Patient tolerated his intrathecal increase with no complications and was discharged neurologically intact. I have counseled the patient that we will plan on taking out his sutures at his next visit as well as an additional adjustment. We will plan on making a larger increase as long as he has not had any additional symptoms from the current pump medication at that visit. Patient has been counseled to continue his 6-week postop restrictions including no submerging in water until his incisions are fully healed, minimal bending, twisting or lifting and to continue to wear his abdominal binder to prevent seroma formation. Patient was also counseled to watch for any signs of infection such as increasing redness, heat, drainage or fever. Patient acknowledges understanding. He will return to clinic in 2 weeks for reevaluation of symptoms and plan of care. Patient has been instructed to contact the clinic with any concerns before the next appointment. Dr. Benavides has reviewed this note and agrees with this plan of care. This note was dictated using voice recognition software and make contain errors or omissions. -- It Is medically necessary for this patient to continue to have their intrathecal pump refilled at regular intervals. This patient had an intrathecal pain pump implanted after meeting criteria of chronic intractable pain for greater than 3 months and failing conservative treatments. Patient has committed and been compliant to the treatment plan and all planned follow up care. Since implantation of the intrathecal pain pump, the patient has had decreased pain and been more functional. Oral medications have been reduced including intake of oral opioids. Patient continues to do well with intrathecal therapy with decrease in pain symptoms and increase in functional status. Stopping intrathecal medications can lead to life threatening withdrawal, seizures, cardiac arrest, severe pain, and possible . Pumps that are not refilled at regular intervals can be damages and cause and need for replacement. We continually titrate dose and concentration to optimize pain relief and function. We are limited in concentration for certain drugs to safely deliver medications through the pump and stay within the recommendations from the Polyanalgesic Consensus Committee Guidelines. Depending on dose and concentration these pumps may need to be refilled sooner than 3 months as we titrate.
== END 2023-10-11 23:59 | disposition home or self-care (01) ==
PROVIDERS: Visit Provider Nurse Practitioner Family
DX: M50.10 Cervical disc disorder with radiculopathy, unspecified cervical region (principal); M51.16 Intervertebral disc disorders with radiculopathy, lumbar region; M96.1 Postlaminectomy syndrome, not elsewhere classified; G89.4 Chronic pain syndrome; Z97.8 Presence of other specified devices; Z45.1 Encounter for adjustment and management of infusion pump
CPT/HCPCS: 62368; 99212; G0463

== ENCOUNTER 2023-10-23 13:01 | Outpatient (POV) | payer MEDICARE, OTHER, SELFPAY ==
[2023-10-23 13:16] VITALS: BP 139/90; PULSE 67; RESP 16; TEMP 36.5; O2SAT 100; BMI 23.7
--- NOTE | 2023-10-23 13:28 | A.OFFVIS_ITS ---
[facility] Pain Management SOAP Note Subjective:: Patient is a pleasant 68-year-old male that comes our clinic today for left lower abdominal wound check. Patient is status post intrathecal pain pump implant on 10/02/2023. Incision is clean and dry. Some slight redness however, without infection. He will return to the clinic next Sunday for removal of every other staple. No fever. No chills. Objective:: Patient is awake alert Newton x 3. In no acute distress. Flexion-extension lumbar cervical spine normal. Deep tendon reflexes upper and lower extremities normal. Motor strength upper and lower extremities normal. There is no gross sensory deficit. Gait is normal. Assessment:: Degenerative disease lumbar spine multilevels. Lumbar radiculopathy. Degenerative disc disease cervical spine cervical radiculopathy. Chronic pain syndrome. Plan:: Will return next Sunday for wound check and every other staple removal. [facility] Disclaimer: The information contained in this section may have been updated after the patient was seen, as this information can be updated by other users. Medical History No significant past medical history Surgical History History of back surgery Family History Other Prostate cancer Social History Smoking Status: Never smoker alcohol intake: never substance use type: denies use current occupational status: other Travel in the last 8 weeks: None caffeine: Yes
== END 2023-10-23 23:59 | disposition home or self-care (01) ==
LOC: SC.PAIN 13:02
PROVIDERS: PCP Internal Medicine Addiction Medicine; Visit Provider Nurse Anesthetist, Certified Registered
DX: M51.16 Intervertebral disc disorders with radiculopathy, lumbar region (principal); Z48.89 Encounter for other specified surgical aftercare; M50.10 Cervical disc disorder with radiculopathy, unspecified cervical region; G89.4 Chronic pain syndrome; Z97.8 Presence of other specified devices
CPT/HCPCS: 99212; G0463

== ENCOUNTER 2023-10-29 09:04 | Outpatient (POV) | payer MEDICARE, OTHER, SELFPAY ==
--- NOTE | 2023-10-29 09:41 | EXP.PAIN.PRO ---
Procedure Date: 10/29/23 Time: 09:42 Anesthesiologist:: Ninoska Kumar APRN Complications:: None Pre-procedure Diagnosis:: Degenerative disc disease of cervical and lumbar spine with cervical and lumbar radiculopathy symptoms, chronic pain syndrome Post-procedure Diagnosis:: Same Indications for Procedure:: Patient is a pleasant 68-year-old male who presents today for intrathecal adjustment and reprogram as well as staple removal and follow-up. Today he rates his pain a 7 out of 10. Patient denies any new trauma or injury. He did end up coming year and last week due to his pump looking irritated. Today he does state it is a little bit better however it is still a little swollen and red. Patient is currently managed with morphine 15 mg/mL with a daily dose of 4.96 mg/day. He denies any side effects from this medication. His Ramo has been reviewed and is appropriate. Physical Exam: General: Alert and oriented x3, no acute distress, pleasant and cooperative Lungs: Respirations even and unlabored, symmetrical chest expansion Eyes: PERRL Musculoskeletal: Flexion and extension of lumbar [spine] somewhat guarded secondary to pain, [antalgic gait noted] Neurological: Speech clear, no gross sensory deficit Skin: Incision sites are clean, dry, well-approximated with moderate erythema noted along medial border of the pump, jeimy intact Procedure Details:: Informed consent was obtained and the risk and benefits of the procedure were explained to the patient. Patient was taken to the procedure room where noninvasive monitoring was placed including noninvasive blood pressure cuff and pulse oximeter. Patient's pump was interrogated and was reprogrammed to morphine 5.457 mg/day. The patient tolerated the procedure well with no complications. Plan and Disposition:: Patient tolerated his intrathecal increase with no complications and was discharged neurologically intact. I have counseled the patient due to the irritation noted along the medial aspect of the incision site that we will hold off taking out all of his jeimy today. I will send in a prescription of Bactrim for 10 days. Patient will return to clinic in 1 week for reevaluation of symptoms and plan of care. Patient has been instructed to contact the clinic with any concerns before the next appointment. Dr. Benavides has reviewed this note and agrees with this plan of care. This note was dictated using voice recognition software and make contain errors or omissions. -- It Is medically necessary for this patient to continue to have their intrathecal pump refilled at regular intervals. This patient had an intrathecal pain pump implanted after meeting criteria of chronic intractable pain for greater than 3 months and failing conservative treatments. Patient has committed and been compliant to the treatment plan and all planned follow up care. Since implantation of the intrathecal pain pump, the patient has had decreased pain and been more functional. Oral medications have been reduced including intake of oral opioids. Patient continues to do well with intrathecal therapy with decrease in pain symptoms and increase in functional status. Stopping intrathecal medications can lead to life threatening withdrawal, seizures, cardiac arrest, severe pain, and possible . Pumps that are not refilled at regular intervals can be damages and cause and need for replacement. We continually titrate dose and concentration to optimize pain relief and function. We are limited in concentration for certain drugs to safely deliver medications through the pump and stay within the recommendations from the Polyanalgesic Consensus Committee Guidelines. Depending on dose and concentration these pumps may need to be refilled sooner than 3 months as we titrate.
[2023-10-29 10:44] VITALS: BP 121/85; PULSE 62; RESP 18; O2SAT 97; BMI 23.7
== END 2023-10-29 23:59 | disposition home or self-care (01) ==
PROVIDERS: Visit Provider Nurse Practitioner Family
DX: M50.10 Cervical disc disorder with radiculopathy, unspecified cervical region (principal); M51.16 Intervertebral disc disorders with radiculopathy, lumbar region; G89.4 Chronic pain syndrome; Z97.8 Presence of other specified devices; Z45.1 Encounter for adjustment and management of infusion pump
CPT/HCPCS: 62368; 99213; G0463

== ENCOUNTER 2023-11-08 10:51 | Outpatient (POV) | payer MEDICARE, OTHER, SELFPAY ==
[2023-11-08 11:00] VITALS: BP 140/78; PULSE 85; RESP 18; O2SAT 97; BMI 24.4
--- NOTE | 2023-11-08 11:07 | P.PCN_ITS ---
Procedure Date: 11/08/23 Time: 11:07 Anesthesiologist:: Ninoska Kumar APRN Complications:: None Pre-procedure Diagnosis:: Degenerative disc disease of cervical and lumbar spine with cervical and lumbar radiculopathy symptoms, chronic pain syndrome Post-procedure Diagnosis:: Same Indications for Procedure:: Patient is a pleasant 68-year-old male who presents today for intrathecal adjustment and reprogram and staple removal.. Today he rates his pain an 8 out of 10. Patient denies any new trauma or injury. He does state that he feels like his incisions are doing better. Patient is currently managed with morphine 15 mg/mL with a daily dose of 5.457 mg/day. He denies any side effects from this medication. He does state that he is experiencing a lot more neck pain with numbness and tingling that radiates down his entire left extremity to his fingers. Patient states it does interfere with his ability perform activities of daily living such as cooking and cleaning and that he is even having his sleep altered due to the pain. Patient has previously had a cervical epidural in the past that did provide improvement lasting 2 weeks. He does state that he is open to this option. His Ramo has been reviewed and is appropriate. Physical Exam: General: Alert and oriented x3, no acute distress, pleasant and cooperative Lungs: Respirations even and unlabored, symmetrical chest expansion Eyes: PERRL Musculoskeletal: Flexion and extension of cervical [spine] somewhat guarded secondary to pain, [antalgic gait noted] positive Spurling's test Neurological: Speech clear, no gross sensory deficit Skin: His back incision is clean, dry and fully healed, left-sided abdominal inc ision is clean, dry, well-approximated with mild erythema around staple sites, jeimy intact Procedure Details:: Informed consent was obtained and the risk and benefits of the procedure were explained to the patient. Patient was taken to the procedure room where noninvasive monitoring was placed including noninvasive blood pressure cuff and pulse oximeter. Patient's pump was interrogated and was reprogrammed to morphine 6.004mg/ml. The patient tolerated the procedure well with no complications. Plan and Disposition:: Patient tolerated his intrathecal increase with no complications and was discharged neurologically intact. I have discussed with patient due to his worsening neck pain that does radiate with numbness and tingling into his left upper arm that he may benefit from a repeat cervical epidural. Risk and benefits were discussed with patient and he would like to proceed forward with this plan of care. Patient did previously have a cervical epidural C6-C7 in August that did provide more than 50% relief lasting 2 weeks. During that time the patient was much more functional and felt like he had decreased pain overall. Patient is not on any blood thinners. Patient has tried and failed conservative therapies as well as continued home exercise and stretching between injections with minimal relief. We will schedule the patient for a GUILLERMINA C5-C6 under fluoroscopy. Patient does have a nerve root impingement noted at the C5- C6 level. Patient did tolerate having all of his jeimy removed along the left abdominal incision. Skin glue and Steri-Strips were applied. I have counseled the patient to continue his postop restrictions for the full 6 weeks. Patient acknowledges understanding and agrees with this plan of care. We will see the patient back in the clinic at the next intrathecal refill. Patient has been instructed to contact the clinic with any concerns before the next appointment. Dr. Benavides has reviewed this note and agrees with this plan of care. This note was dictated using voice recognition software and make contain errors or omissions. -- It Is medically necessary for this patient to continue to have their intrathecal pump refilled at regular intervals. This patient had an intrathecal pain pump implanted after meeting criteria of chronic intractable pain for greater than 3 months and failing conservative treatments. Patient has committed and been compliant to the treatment plan and all planned follow up care. Since implantation of the intrathecal pain pump, the patient has had decreased pain and been more functional. Oral medications have been reduced including intake of oral opioids. Patient continues to do well with intrathecal therapy with decrease in pain symptoms and increase in functional status. Stopping intrathecal medications can lead to life threatening withdrawal, seizures, cardiac arrest, severe pain, and possible . Pumps that are not refilled at regular intervals can be damages and cause and need for replacement. We continually titrate dose and concentration to optimize pain relief and function. We are limited in concentration for certain drugs to safely deliver medications through the pump and stay within the recommendations from the Polyanalgesic Consensus Committee Guidelines. Depending on dose and concentration these pumps may need to be refilled sooner than 3 months as we titrate.
== END 2023-11-08 23:59 | disposition home or self-care (01) ==
PROVIDERS: Visit Provider Nurse Practitioner Family
DX: M50.122 Cervical disc disorder at C5-C6 level with radiculopathy (principal); M51.16 Intervertebral disc disorders with radiculopathy, lumbar region; G89.4 Chronic pain syndrome; Z97.8 Presence of other specified devices; Z45.1 Encounter for adjustment and management of infusion pump; Z48.02 Encounter for removal of sutures
CPT/HCPCS: 62368; 99212; G0463

== ENCOUNTER 2023-11-27 07:52 | Day surgery (SDC) | payer MEDICARE, OTHER, SELFPAY ==
[2023-11-27 08:17] VITALS: BP 139/84; PULSE 76; RESP 18; O2SAT 98; BMI 24.4
[2023-11-27] MEDS: methylPREDNISolone ACETATE 80MG/ML VIAL 80 MG (09:07)
[2023-11-27 09:08] VITALS: BP 129/91; PULSE 77; RESP 18; O2SAT 100
[2023-11-27 09:09] VITALS: BP 129/91; PULSE 77; RESP 18; O2SAT 100
[2023-11-27] MEDS: IOPAMIDOL-200 (41%);10ML VIAL 10 ML IV (09:13)
[2023-11-27 09:14] VITALS: BP 157/94; PULSE 69; RESP 18; O2SAT 98
--- NOTE | 2023-11-27 09:14 | P.PCN_ITS ---
Procedure Date: 11/27/23 Time: 08:30 Anesthesiologist:: Nimesh Boyle CRNA Complications:: None Pre-procedure Diagnosis:: Degenerative disc cervical spine multilevels. Cervical radiculopathy. Post-procedure Diagnosis:: Same. Indications for Procedure:: Patient is a very pleasant 68-year-old male comes our clinic today for cervical epidural steroid injection. Patient reports 10 to 14 days of significant improvement terms of his overall posterior cervical neck pain as well as bilateral arm radiculopathy with his previous injection. Patient describes posterior cervical neck pain as constant, dull, aching. Bilateral arm radiculopathy he describes as intermittent. He rates his pain 6/10. Procedure Details:: Procedure:Cervical epidural steroid injection Informed consent was obtained and the risks and benefits of the procedure were explained to the patient. The patient was taken to the procedure room and noninvasive monitors placed, including noninvasive blood pressure cuff and pulse oximeter. The neck was prepped using Chloraprep as a cleansing solution. The C6- C7 interspace was viewed using fluroscopy. The skin and subcutaneous tissues were anesthetized using lidocaine 1.5% and a 25-gauge needle. After this an 18- gauge Touhy epidural needle was placed into the C6-C7 interspace under fluroscopy guidance and advanced using loss of resistance to air until the epidural space was encountered. After confirmation of needle placement in the epidural space using contrast dye, a solution containing normal saline, 2 mL and Depo-Medrol 80 mg was incrementally injected into the cervical epidural space.~ The patient tolerated the procedure well with no complications. The patient was observed in the Pain Clinic and then discharged home neurologically intact. Plan and Disposition:: Patient was discharged without incident.
== END 2023-11-27 09:15 | disposition home or self-care (01) ==
PROVIDERS: PCP Internal Medicine Addiction Medicine; Visit Provider Nurse Anesthetist, Certified Registered
DX: M50.123 Cervical disc disorder at C6-C7 level with radiculopathy (principal)
CPT/HCPCS: 62321; Q9966

== ENCOUNTER 2024-04-15 08:51 | Day surgery (SDC) | payer MEDICARE, SELFPAY ==
[2024-04-15 09:08] VITALS: BP 97/77; PULSE 77; RESP 16; TEMP 36.9; O2SAT 100; BMI 22.2
[2024-04-15 09:39] VITALS: BP 122/91; PULSE 78; RESP 18; O2SAT 96
[2024-04-15 09:40] VITALS: BP 122/91; PULSE 78; RESP 18; O2SAT 96
[2024-04-15 09:48] VITALS: BP 126/80; PULSE 72; RESP 16; O2SAT 99
--- NOTE | 2024-04-15 09:58 | EXP.PAIN.PRO ---
Procedure Date: 04/15/24 Time: 09:40 Anesthesiologist:: Nimesh Boyle CRNA Complications:: None Pre-procedure Diagnosis:: Degenerative disc cervical spine multilevels.. Cervical radiculopathy. Degenerative disc lumbar spine multilevels. Lumbar radiculopathy. Lumbar postlaminectomy syndrome. Post-procedure Diagnosis:: Same. Indications for Procedure:: Patient is a pleasant 68-year-old male who comes our clinic today for intrathecal pain pump interrogation and refill. Patient is currently being managed with morphine sulfate 20 mg/mL at a rate of 7.706 mg/day. He is doing very well with his current settings. He is not requesting changes or adjustments. He does not report any side effects or complications. Patient is awake alert [place] x 3. In no acute distress. Flexion-extension lumbar spine somewhat guarded secondary to pain. Deep tendon reflexes upper and lower extremities normal. Motor strength upper and lower extremities normal. There is no gross sensory deficit. Gait is normal. Procedure Details:: Details of the procedure explained the patient. The patient taken procedure note patient is supine position on fluoroscopy table. They over the pump was cleansed using chlorhexidine's cleansing solution. Using fluoroscopy guidance the intrathecal pain pump was accessed with ease in the lower left abdomen. 4 mL of solution was withdrawn and discarded appropriately. The pump was then filled with 20 cc of solution containing morphine sulfate 20 mg/mL. Patient tolerated procedure without difficulty. There are no complications. Plan and Disposition:: Patient was discharged without incident.
== END 2024-04-15 09:48 | disposition home or self-care (01) ==
LOC: SC.PAINP 08:52
PROVIDERS: PCP Family Medicine; Visit Provider Nurse Anesthetist, Certified Registered
DX: M50.10 Cervical disc disorder with radiculopathy, unspecified cervical region (principal); M51.16 Intervertebral disc disorders with radiculopathy, lumbar region; M96.1 Postlaminectomy syndrome, not elsewhere classified
CPT/HCPCS: 95991

== ENCOUNTER 2024-05-13 07:59 | Day surgery (SDC) | payer MEDICARE, SELFPAY ==
[2024-05-13 08:22] VITALS: BP 119/78; PULSE 64; RESP 16; TEMP 36.7; O2SAT 99; BMI 21.8
[2024-05-13 08:42] VITALS: BP 116/82; PULSE 64; RESP 18; O2SAT 97
[2024-05-13 08:54] VITALS: BP 116/82; PULSE 64; RESP 18; O2SAT 96
--- NOTE | 2024-05-13 08:54 | EXP.PAIN.PRO ---
Procedure Date: 05/13/24 Time: 08:40 Anesthesiologist:: Nimesh Boyle CRNA Complications:: None Pre-procedure Diagnosis:: Degenerative disc lumbar spine multilevels. Lumbar radiculopathy. Lumbar postlaminectomy syndrome. Lumbar spondylosis. Post-procedure Diagnosis:: Same. Indications for Procedure:: Patient is a pleasant 68-year-old male who comes our clinic today for intrathecal pain pump interrogation and refill. Patient currently being managed with morphine sulfate 20 mg/mL. He is doing very well with his current settings. His current rate is 7.706 mg/day. He is not reporting any side effects or complications. Patient is awake alert [place] x 3. No acute distress. Flexion-extension lumbar spine somewhat guarded secondary to pain. Deep tendon reflexes upper lower extremities normal. Motor strength upper lower extremities normal. There is no gross sensory deficit. Gait is normal. Procedure Details:: Details of the procedure explained to the patient. The patient taken procedure room patient sitting position. They over the pumps cleansed using chlorhexidine as a cleansing solution. The pump is interrogated. The pump was accessed with ease using a 22-gauge inch and half needle. 8.5 mL of solution was withdrawn discarded appropriate. The pump was then filled with 20 cc of a solution containing morphine sulfate 20 mg/mL. Patient tolerated procedure without difficulty. No complications. Plan and Disposition:: Patient was discharged without incident.
[2024-05-13 08:55] VITALS: BP 125/76; PULSE 59; RESP 16; O2SAT 99
== END 2024-05-13 08:55 | disposition home or self-care (01) ==
PROVIDERS: PCP Family Medicine; Visit Provider Nurse Anesthetist, Certified Registered
DX: M51.16 Intervertebral disc disorders with radiculopathy, lumbar region (principal); M47.26 Other spondylosis with radiculopathy, lumbar region; M96.1 Postlaminectomy syndrome, not elsewhere classified
CPT/HCPCS: 95991

== ENCOUNTER 2024-06-23 08:06 | Day surgery (SDC) | payer MEDICARE, OTHER, SELFPAY ==
--- NOTE | 2024-06-23 08:27 | EXP.PAIN.PRO ---
Procedure Date: 06/23/24 Time: 09:00 Anesthesiologist:: Ninoska Kumar APRN Complications:: None Pre-procedure Diagnosis:: Degenerative disc disease of lumbar spine with lumbar radiculopathy symptoms Post-procedure Diagnosis:: Same Indications for Procedure:: Patient is a pleasant 69-year-old male who presents today for intrathecal refill and reprogram. Today he rates his pain a 7 out of 10. He denies any new trauma or injury.Patient's intrathecal pump is managed with morphine 20 mg/mL with a daily dose of 7.706 mg/day. He denies any side effects from this medication. He states he feels like the dosage is working well and is not requesting any additional adjustment. Patient's Ramo has been reviewed and is appropriate. Physical Exam: General: Alert and oriented x3, no acute distress, pleasant and cooperative Lungs: Respirations even and unlabored, symmetrical chest expansion Eyes: PERRL Musculoskeletal: Flexion and extension of lumbar [spine] somewhat guarded secondary to pain, [antalgic gait noted] Neurological: Speech clear, no gross sensory deficit Procedure Details:: Informed consent was obtained and the risk and benefits of the procedure were explained to the patient. The patient had noninvasive monitoring placed including noninvasive blood pressure cuff and pulse oximeter. Patient's pump was interrogated. The area over the pump was cleansed with chlorhexidine as a cleansing solution. In sterile fashion the pump was accessed with a 22-gauge needle. Approximately 4 mls of the pump solution was removed and discarded appropriately. The pump was then refilled with 20 mL's of morphine 20 mg/mL. The needle was withdrawn and a bandage was placed over the puncture site. The infusion rate was reprogrammed and continued at morphine 7.706 mg/day. The patient tolerated well with no complication. Plan and Disposition:: Patient tolerated his intrathecal refill and reprogram with no complications and was discharged neurologically intact. Patient will return to clinic for his next intrathecal refill date. We will see the patient back in the clinic at the next intrathecal refill. Patient has been instructed to contact the clinic with any concerns before the next appointment. Dr. Benavides has reviewed this note and agrees with this plan of care. This note was dictated using voice recognition software and make contain errors or omissions. -- It Is medically necessary for this patient to continue to have their intrathecal pump refilled at regular intervals. This patient had an intrathecal pain pump implanted after meeting criteria of chronic intractable pain for greater than 3 months and failing conservative treatments. Patient has committed and been compliant to the treatment plan and all planned follow up care. Since implantation of the intrathecal pain pump, the patient has had decreased pain and been more functional. Oral medications have been reduced including intake of oral opioids. Patient continues to do well with intrathecal therapy with decrease in pain symptoms and increase in functional status. Stopping intrathecal medications can lead to life threatening withdrawal, seizures, cardiac arrest, severe pain, and possible . Pumps that are not refilled at regular intervals can be damages and cause and need for replacement. We continually titrate dose and concentration to optimize pain relief and function. We are limited in concentration for certain drugs to safely deliver medications through the pump and stay within the recommendations from the Polyanalgesic Consensus Committee Guidelines. Depending on dose and concentration these pumps may need to be refilled sooner than 3 months as we titrate. A UDS is needed to verify patient's compliance with our office pain contract. This is ordered based off specific treatments related to chronic pain with the potential to abuse certain medications.
[2024-06-23 08:45] VITALS: BP 121/83; PULSE 72; RESP 18; O2SAT 100; BMI 21.7
[2024-06-23 08:56] VITALS: BP 128/80; PULSE 64; RESP 18; O2SAT 99
[2024-06-23 08:57] VITALS: BP 128/80; PULSE 64; RESP 18; O2SAT 99
[2024-06-23 09:00] VITALS: BP 124/82; PULSE 62; RESP 18; O2SAT 100
== END 2024-06-23 09:10 | disposition home or self-care (01) ==
PROVIDERS: PCP Family Medicine; Visit Provider Nurse Practitioner Family
DX: M51.16 Intervertebral disc disorders with radiculopathy, lumbar region (principal)
CPT/HCPCS: 62370

== ENCOUNTER 2024-08-01 10:35 | Day surgery (SDC) | payer MEDICARE, OTHER, SELFPAY ==
[2024-08-01 10:53] VITALS: BP 126/79; PULSE 74; RESP 16; TEMP 36.9; O2SAT 99; BMI 23.0
--- NOTE | 2024-08-01 11:03 | P.PCN_ITS ---
Procedure Date: 08/01/24 Time: 11:12 Anesthesiologist:: Ninoska Kumar APRN Complications:: None Pre-procedure Diagnosis:: Degenerative disc disease of lumbar spine with lumbar radiculopathy symptoms Post-procedure Diagnosis:: Same Indications for Procedure:: Patient is a pleasant 69-year-old male who presents today for intrathecal refill and reprogram. He rates his pain today as 7 out of 10. He denies any new trauma or injury. He states that he is doing well with his current pain med ications and does not feel like he needs any additional adjustment. He is currently managed with morphine 20 mg/mL with a daily dose of 7.706 mg/day. He denies any side effects. His Ramo has been reviewed and is appropriate. Physical Exam: General: Alert and oriented x3, no acute distress, pleasant and cooperative Lungs: Respirations even and unlabored, symmetrical chest expansion Eyes: PERRL Musculoskeletal: Flexion and extension of lumbar [spine] somewhat guarded secondary to pain, [antalgic gait noted] Neurological: Speech clear, no gross sensory deficit Procedure Details:: Informed consent was obtained and the risk and benefits of the procedure were explained to the patient. The patient had noninvasive monitoring placed including noninvasive blood pressure cuff and pulse oximeter. Patient's pump was interrogated. The area over the pump was cleansed with chlorhexidine as a cleansing solution. In sterile fashion the pump was accessed with a 22-gauge needle. Approximately 4.2 mls of the pump solution was removed and discarded appropriately. The pump was then refilled with 20 mL's of morphine 20 mg/mL. The needle was withdrawn and a bandage was placed over the puncture site. The infusion rate was reprogrammed and morphine 7.706 mg/day. The patient tolerated well with no complication. Plan and Disposition:: Patient tolerated the procedure well with no complications and was discharged neurologically intact. Patient will return to clinic on or before their next in trathecal refill date. We will see the patient back in the clinic at the next intrathecal refill. Patient has been instructed to contact the clinic with any concerns before the next appointment. Dr. Benavides has reviewed this note and agrees with this plan of care. This note was dictated using voice recognition software and make contain errors or omissions. -- It Is medically necessary for this patient to continue to have their intrathecal pump refilled at regular intervals. This patient had an intrathecal pain pump implanted after meeting criteria of chronic intractable pain for greater than 3 months and failing conservative treatments. Patient has committed and been compliant to the treatment plan and all planned follow up care. Since implantation of the intrathecal pain pump, the patient has had decreased pain and been more functional. Oral medications have been reduced including intake of oral opioids. Patient continues to do well with intrathecal therapy with decrease in pain symptoms and increase in functional status. Stopping intrathecal medications can lead to life threatening withdrawal, seizures, cardiac arrest, severe pain, and possible . Pumps that are not refilled at regular intervals can be damages and cause and need for replacement. We continually titrate dose and concentration to optimize pain relief and function. We are limited in concentration for certain drugs to safely deliver medications through the pump and stay within the recommendations from the Polyanalgesic Consensus Committee Guidelines. Depending on dose and concentration these pumps may need to be refilled sooner than 3 months as we titrate. A UDS is needed to verify patient's compliance with our office pain contract. This is ordered based off specific treatments related to chronic pain with the potential to abuse certain medications.
[2024-08-01 11:04] VITALS: BP 125/89; PULSE 64; RESP 18; O2SAT 97
[2024-08-01 11:06] VITALS: BP 125/89; PULSE 64; RESP 18; O2SAT 97
[2024-08-01 11:23] VITALS: BP 133/87; PULSE 67; RESP 16; O2SAT 100
== END 2024-08-01 11:23 | disposition home or self-care (01) ==
PROVIDERS: PCP Internal Medicine Addiction Medicine; Visit Provider Nurse Practitioner Family
DX: M51.16 Intervertebral disc disorders with radiculopathy, lumbar region (principal)
CPT/HCPCS: 62370

== ENCOUNTER 2024-09-09 08:18 | Day surgery (SDC) | payer MEDICARE, OTHER, SELFPAY ==
[2024-09-09 08:38] VITALS: BP 126/83; PULSE 57; RESP 16; TEMP 36.5; O2SAT 98; BMI 22.4
[2024-09-09 09:33] VITALS: BP 147/83; PULSE 53; RESP 16; O2SAT 100
--- NOTE | 2024-09-09 09:33 | EXP.PAIN.PRO ---
Procedure Date: 09/09/24 Time: 09:10 Anesthesiologist:: Nimesh Boyle CRNA Complications:: None Pre-procedure Diagnosis:: Degenerative disc lumbar spine multilevels. Lumbar radiculopathy. Lumbar postlaminectomy syndrome. Post-procedure Diagnosis:: Same. Indications for Procedure:: Patient is a very pleasant 69-year-old male who comes our clinic today for intrathecal pain pump interrogation refill. Patient currently being managed with morphine sulfate 20 mg/mL at a rate of 7.706 mg/day. He is doing very well with his current settings. He is not reporting any side effects or complications. He is not requesting any changes. Procedure Details:: Details of the procedure explained to the patient. The patient taken procedure and placed in the supine position on the fluoroscopy table. The area over the left lower abdomen was cleaned using chlorhexidine as a cleansing solution. The pump was interrogated. The pump was accessed with ease using a 22-gauge inch and half needle under fluoroscopy guidance. 4.4 mL of solution was withdrawn discarded appropriate. The pump was then filled with 20 cc of solution containing morphine sulfate 20 mg/mL. The filling of the pump was observed with fluoroscopy in the lateral position. Patient tolerated procedure without difficulty. No complications. Plan and Disposition:: Patient was discharged without incident.
[2024-09-09 09:45] VITALS: BP 131/94; PULSE 56; RESP 18; O2SAT 99
[2024-09-09 09:54] VITALS: BP 131/94; PULSE 56; RESP 18; O2SAT 99
== END 2024-09-09 09:33 | disposition home or self-care (01) ==
LOC: SC.PAIN 08:21
PROVIDERS: PCP Nurse Practitioner Family; Visit Provider Nurse Anesthetist, Certified Registered
DX: M51.16 Intervertebral disc disorders with radiculopathy, lumbar region (principal); M96.1 Postlaminectomy syndrome, not elsewhere classified
CPT/HCPCS: 95991

== ENCOUNTER 2024-10-10 13:33 | Day surgery (SDC) | payer MEDICARE, OTHER, SELFPAY ==
[2024-10-10 14:00] VITALS: BP 125/79; BP 137/93; PULSE 59; PULSE 69; RESP 16; RESP 18; O2SAT 97; BMI 22.4
[2024-10-10 14:02] VITALS: BP 137/93; PULSE 59; RESP 18; O2SAT 97
[2024-10-10 14:27] VITALS: BP 131/78; PULSE 61; RESP 16; O2SAT 100
--- NOTE | 2024-10-10 14:28 | EXP.PAIN.PRO ---
Procedure Date: 10/10/24 Time: 13:45 Anesthesiologist:: Ninoska Kumar APRN Complications:: None Pre-procedure Diagnosis:: Degenerative disc disease of lumbar spine with lumbar radiculopathy symptoms Post-procedure Diagnosis:: Same Indications for Procedure:: Patient is a pleasant 69-year-old male who presents today for intrathecal refill and reprogram. Today he rates his pain a 8 out of 10. He denies any new trauma or injury. He does state overall everything is about the same. He does state that some of his pains is more related to the weather. Patient is currently managed with morphine 20 mg/mL with a daily dose of 7.706 mg/day. He denies any side effects. His Ramo has been reviewed and is appropriate. Physical Exam: General: Alert and oriented x3, no acute distress, pleasant and cooperative Lungs: Respirations even and unlabored, symmetrical chest expansion Eyes: PERRL Musculoskeletal: Flexion and extension of lumbar [spine] somewhat guarded secondary to pain, [antalgic gait noted] Neurological: Speech clear, no gross sensory deficit Procedure Details:: Informed consent was obtained and the risk and benefits of the procedure were explained to the patient. The patient had noninvasive monitoring placed including noninvasive blood pressure cuff and pulse oximeter. Patient's pump was interrogated. The area over the pump was cleansed with chlorhexidine as a cleansing solution. In sterile fashion the pump was accessed with a 22-gauge needle. Approximately 7.9 mls of the pump solution was removed and discarded appropriately. The pump was then refilled with 20 mL's of morphine 20 mg/mL. The needle was withdrawn and a bandage was placed over the puncture site. The infusion rate was reprogrammed and continued at its current dosage. The patient tolerated well with no complication. Plan and Disposition:: Patient tolerated the procedure well with no complications and was discharged neurologically intact. Patient will return to clinic on or before their next intrathecal refill date. We will see the patient back in the clinic at the next intrathecal refill. Patient has been instructed to contact the clinic with any concerns before the next appointment. Dr. Benavides has reviewed this note and agrees with this plan of care. This note was dictated using voice recognition software and make contain errors or omissions. -- It Is medically necessary for this patient to continue to have their intrathecal pump refilled at regular intervals. This patient had an intrathecal pain pump implanted after meeting criteria of chronic intractable pain for greater than 3 months and failing conservative treatments. Patient has committed and been compliant to the treatment plan and all planned follow up care. Since implantation of the intrathecal pain pump, the patient has had decreased pain and been more functional. Oral medications have been reduced including intake of oral opioids. Patient continues to do well with intrathecal therapy with decrease in pain symptoms and increase in functional status. Stopping intrathecal medications can lead to life threatening withdrawal, seizures, cardiac arrest, severe pain, and possible . Pumps that are not refilled at regular intervals can be damages and cause and need for replacement. We continually titrate dose and concentration to optimize pain relief and function. We are limited in concentration for certain drugs to safely deliver medications through the pump and stay within the recommendations from the Polyanalgesic Consensus Committee Guidelines. Depending on dose and concentration these pumps may need to be refilled sooner than 3 months as we titrate. A UDS is needed to verify patient's compliance with our office pain contract. This is ordered based off specific treatments related to chronic pain with the potential to abuse certain medications.
== END 2024-10-10 14:27 | disposition home or self-care (01) ==
PROVIDERS: PCP Nurse Practitioner Family; Visit Provider Nurse Practitioner Family
DX: M51.16 Intervertebral disc disorders with radiculopathy, lumbar region (principal)
CPT/HCPCS: 62370

== ENCOUNTER 2024-11-14 13:45 | Day surgery (SDC) | payer MEDICARE, OTHER, SELFPAY ==
--- NOTE | 2024-11-14 13:47 | P.HP_ITS ---
History of Present Illness *Admission Date: 11/14/24 *Reason for visit:: Intrathecal refill; DDD *History of present illness: Degenerative disc disease [facility] Disclaimer: The information contained in this section may have been updated after the patient was seen, as this information can be updated by other users. Medical History (Updated 11/14/24 @ 13:48 by Ninoska Kumar APRN) Insomnia No significant past medical history Surgical History History of back surgery Family History Other Prostate cancer Social History Smoking Status: Never smoker alcohol intake: never substance use type: denies use current occupational status: other Travel in the last 8 weeks?: None caffeine: Yes Have you lived/traveled outside [place] in past 30 days?: No Contact w/someone who lives/traveled outside US past 30 days?: No Exposure to someone with infectious disease in past 14 days?: No Do you have a fever (greater than 100.4 F or 38 C)?: No Have you tested positive for COVID-19?: No Exposed to someone with COVID-19 in past 14 days?: No Do you have a sore throat?: No Do you have a cough?: No Do you have any weakness?: No Do you have any diarrhea?: No Are you experiencing any unusual bleeding?: No Do you have any muscle aches/pain?: No Do you have any abdominal pain?: No Are you experiencing loss of taste or smell?: No Other Medical History Have you received the Flu Vaccine for this season: No Have you received the Pneumonia Vaccine: No Review of Systems Review of Systems Review of systems:: pertinent systems reviewed and negative unless documented below Review of systems (narrative): Review of Systems: General: No recent weight changes, no fever, no sleep disturbances Respiratory: No cough, no shortness of air, no recurring pulmonary infections Cardiovascular/peripheral vascular: No chest pain, no palpitations, no edema, no shortness of breath Gastrointestinal: No new onset incontinence, normal bowel movements reported Genitourinary: No new onset incontinence Musculoskeletal: Chronic back pain Psychiatric: [Normal mood/affect] Neurological: [Denies weakness in extremities], [denies balance issues] Meds Home Medications and Allergies Home Medications ?Medication ?Instructions ?Recorded ?Confirmed ?Type amitriptyline 150 mg tablet 150 mg PO HS sleep 12/12/19 10/10/24 History hydroxyzine HCl 25 mg tablet 25 mg PO HS sleep 10/01/23 10/10/24 History New Prescriptions to Start Prescriptions: Allergies Allergy/AdvReac Type Severity Reaction Status Date / Time No Known Allergies Allergy Verified 10/10/24 14:00 Exam Constitutional Constitutional: no acute distress *Routine HEENT Exam Head: Present normocephalic and atraumatic Eye: Present PERRL ENT: Present mucous membranes moist *Routine Neck Exam Neck: Present supple *Routine Respiratory Exam Respiratory: Present CTA bilaterally *Routine Cardiovascular Exam Cardiovascular: Present RRR *Routine Abdominal Exam Abdominal: Present soft *Routine Rectal Exam Rectal:: deferred *Routine Genitalia Exam Genitalia:: normal male Routine Back/Spine/Pelvis Exam Back/Spine: Present pain with flexion *Routine Skin Exam Skin: Present intact and warm *Routine Neurological Exam Neurological: Present alert and oriented X3 Routine Psychiatric Exam Psychiatric: Present normal affect and normal thought process Assessment and Plan *Assessment and plan (1) Chronic pain syndrome: Status: Acute Category: Medical Code(s): G89.4 - Chronic pain syndrome Plan Patient has been instructed to contact the clinic with any concerns before the next appointment. Dr. Benavides has reviewed this note and agrees with this plan of care. This note was dictated using voice recognition software and make contain errors or omissions. All injections are used with Lidocaine, Bupivacaine and dexamethasone. Occasionally urine drug screen is needed to verify patient's compliance with our office pain contract. This is ordered based off specific treatments related to chronic pain with the potential to abuse certain medications.
--- NOTE | 2024-11-14 13:49 | EXP.PAIN.PRO ---
Procedure Date: 11/14/24 Time: 14:41 Anesthesiologist:: Ninoska Kumar APRN Complications:: None Pre-procedure Diagnosis:: Degenerative disc disease of lumbar spine, chronic pain syndrome Post-procedure Diagnosis:: Same Indications for Procedure:: Patient is a pleasant 69-year-old male who presents today for intrathecal refill and reprogram. Patient rates his pain today a 7 out of 10. He denies any new falls or injuries. He does state that overall he is still continuing to do well with his pump. Patient is currently managed with morphine 20 mg/mL with a daily dose of 7.706 mg/day. He denies any side effects. His Ramo has been reviewed and is appropriate. Physical Exam: General: Alert and oriented x3, no acute distress, pleasant and cooperative Lungs: Respirations even and unlabored, symmetrical chest expansion Eyes: PERRL Musculoskeletal: Flexion and extension of lumbar [spine] somewhat guarded secondary to pain, [antalgic gait noted] Neurological: Speech clear, no gross sensory deficit Procedure Details:: Informed consent was obtained and the risk and benefits of the procedure were explained to the patient. The patient had noninvasive monitoring placed including noninvasive blood pressure cuff and pulse oximeter. Patient's pump was interrogated. The area over the pump was cleansed with chlorhexidine as a cleansing solution. In sterile fashion the pump was accessed with a 22-gauge needle. Approximately 6.5 mls of the pump solution was removed and discarded appropriately. The pump was then refilled with 20 mL's of morphine 20 mg/mL. The needle was withdrawn and a bandage was placed over the puncture site. The infusion rate was reprogrammed and continued at its current dosage. The patient tolerated well with no complication. Plan and Disposition:: Patient tolerated the procedure well with no complications and was discharged neurologically intact. Patient will return to clinic on or before their next intrathecal refill date. We will see the patient back in the clinic at the next intrathecal refill. Patient has been instructed to contact the clinic with any concerns before the next appointment. Dr. Benavides has reviewed this note and agrees with this plan of care. This note was dictated using voice recognition software and make contain errors or omissions. -- It Is medically necessary for this patient to continue to have their intrathecal pump refilled at regular intervals. This patient had an intrathecal pain pump implanted after meeting criteria of chronic intractable pain for greater than 3 months and failing conservative treatments. Patient has committed and been compliant to the treatment plan and all planned follow up care. Since implantation of the intrathecal pain pump, the patient has had decreased pain and been more functional. Oral medications have been reduced including intake of oral opioids. Patient continues to do well with intrathecal therapy with decrease in pain symptoms and increase in functional status. Stopping intrathecal medications can lead to life threatening withdrawal, seizures, cardiac arrest, severe pain, and possible . Pumps that are not refilled at regular intervals can be damages and cause and need for replacement. We continually titrate dose and concentration to optimize pain relief and function. We are limited in concentration for certain drugs to safely deliver medications through the pump and stay within the recommendations from the Polyanalgesic Consensus Committee Guidelines. Depending on dose and concentration these pumps may need to be refilled sooner than 3 months as we titrate. A UDS is needed to verify patient's compliance with our office pain contract. This is ordered based off specific treatments related to chronic pain with the potential to abuse certain medications.
[2024-11-14 13:54] VITALS: BP 121/67; PULSE 63; RESP 16; O2SAT 96; BMI 22.4
[2024-11-14 14:28] VITALS: BP 128/76; PULSE 56; RESP 18; O2SAT 97
[2024-11-14 14:45] VITALS: BP 110/69; PULSE 50; RESP 16; O2SAT 98
== END 2024-11-14 14:45 | disposition home or self-care (01) ==
PROVIDERS: PCP Nurse Practitioner Family; Visit Provider Nurse Practitioner Family
DX: G89.4 Chronic pain syndrome (principal); M51.369 Other intervertebral disc degeneration, lumbar region without mention of lumbar back pain or lower extremity pain
CPT/HCPCS: 62370

== ENCOUNTER 2024-12-26 13:18 | Day surgery (SDC) | payer MEDICARE, OTHER, SELFPAY ==
[2024-12-26 13:35] VITALS: BP 123/86; PULSE 70; RESP 18; O2SAT 100; BMI 23.0
--- NOTE | 2024-12-26 14:11 | EXP.PM.HP ---
History of Present Illness *Admission Date: 12/26/24 *Reason for visit:: Intrathecal refill: DDD *History of present illness: Same [facility] Disclaimer: The information contained in this section may have been updated after the patient was seen, as this information can be updated by other users. Medical History Insomnia No significant past medical history Surgical History History of back surgery Family History Other Prostate cancer Social History Smoking Status: Never smoker alcohol intake: never substance use type: denies use current occupational status: other Travel in the last 8 weeks?: None caffeine: Yes Have you lived/traveled outside US in past 30 days?: No Contact w/someone who lives/traveled outside US past 30 days?: No Exposure to someone with infectious disease in past 14 days?: No Do you have a fever (greater than 100.4 F or 38 C)?: No Have you tested positive for COVID-19?: No Exposed to someone with COVID-19 in past 14 days?: No Do you have a sore throat?: No Do you have a cough?: No Do you have any weakness?: No Do you have any diarrhea?: No Are you experiencing any unusual bleeding?: No Do you have any muscle aches/pain?: No Do you have any abdominal pain?: No Are you experiencing loss of taste or smell?: No Other Medical History Have you received the Flu Vaccine for this season: No Have you received the Pneumonia Vaccine: No Review of Systems Review of Systems Review of systems:: pertinent systems reviewed and negative unless documented below Review of systems (narrative): Review of Systems: General: No recent weight changes, no fever, no sleep disturbances Respiratory: No cough, no shortness of air, no recurring pulmonary infections Cardiovascular/peripheral vascular: No chest pain, no palpitations, no edema, no shortness of breath Gastrointestinal: No new onset incontinence, normal bowel movements reported Genitourinary: No new onset incontinence Musculoskeletal: Chronic back pain Psychiatric: [Normal mood/affect] Neurological: [Denies weakness in extremities], [denies balance issues] Meds Home Medications and Allergies Home Medications ?Medication ?Instructions ?Recorded ?Confirmed ?Type amitriptyline 150 mg tablet 150 mg PO HS sleep 12/12/19 12/26/24 History hydroxyzine HCl 25 mg tablet 25 mg PO HS sleep 10/01/23 12/26/24 History New Prescriptions to Start Prescriptions: Allergies Allergy/AdvReac Type Severity Reaction Status Date / Time No Known Allergies Allergy Verified 10/10/24 14:00 Exam Data for Last 24 hours Vital signs and Labs for Last 24 Hours: Pulse Resp BP Pulse Ox O2 Del Method 70 18 123/86 100 Room Air 12/26/24 13:35 12/26/24 13:35 12/26/24 13:35 12/26/24 13:35 12/26/24 13:35 I & O for Last 24 hours: Intake & Output 12/23/24 12/24/24 12/25/24 12/26/24 23:59 23:59 23:59 23:59 Weight 170 lb Constitutional Constitutional: no acute distress *Routine HEENT Exam Head: Present normocephalic and atraumatic Eye: Present PERRL ENT: Present mucous membranes moist *Routine Neck Exam Neck: Present supple *Routine Respiratory Exam Respiratory: Present CTA bilaterally *Routine Cardiovascular Exam Cardiovascular: Present RRR *Routine Abdominal Exam Abdominal: Present soft *Routine Rectal Exam Rectal:: deferred *Routine Genitalia Exam Genitalia:: deferred Routine Back/Spine/Pelvis Exam Back/Spine: Present pain with flexion *Routine Skin Exam Skin: Present intact and warm *Routine Neurological Exam Neurological: Present alert and oriented X3 Routine Psychiatric Exam Psychiatric: Present normal affect and normal thought process Assessment and Plan *Assessment and plan (1) Chronic pain syndrome: Status: Acute Category: Medical Code(s): G89.4 - Chronic pain syndrome Plan Patient has been instructed to contact the clinic with any concerns before the next appointment. Dr. Benavides has reviewed this note and agrees with this plan of care. This note was dictated using voice recognition software and make contain errors or omissions. All injections are used with Lidocaine, Bupivacaine and dexamethasone. Occasionally urine drug screen is needed to verify patient's compliance with our office pain contract. This is ordered based off specific treatments related to chronic pain with the potential to abuse certain medications.
--- NOTE | 2024-12-26 14:12 | EXP.PAIN.PRO ---
Procedure Date: 12/26/24 Time: 14:20 Anesthesiologist:: Ninoska Kumar APRN Complications:: None Pre-procedure Diagnosis:: Degenerative disc disease of lumbar spine, chronic pain syndrome Post-procedure Diagnosis:: Same Indications for Procedure:: Patient is a pleasant 69-year-old male who presents today for intrathecal refill and reprogram. Today he rates his pain a 8 out of 10. He denies any new falls or changes. He states overall he has been doing well and maintaining and does not need any additional adjustment on his pump. He is currently managed with morphine 20 mg/mL with a daily dose of 7.706 mg/day. He denies any side effects. His Ramo has been reviewed and is appropriate. Physical Exam: General: Alert and oriented x3, no acute distress, pleasant and cooperative Lungs: Respirations even and unlabored, symmetrical chest expansion Eyes: PERRL Musculoskeletal: Flexion and extension of lumbar [spine] somewhat guarded secondary to pain, [antalgic gait noted] Neurological: Speech clear, no gross sensory deficit Procedure Details:: Informed consent was obtained and the risk and benefits of the procedure were explained to the patient. The patient had noninvasive monitoring placed including noninvasive blood pressure cuff and pulse oximeter. Patient's pump was interrogated. The area over the pump was cleansed with chlorhexidine as a cleansing solution. In sterile fashion the pump was accessed with a 22-gauge needle. Approximately 4 mls of the pump solution was removed and discarded appropriately. The pump was then refilled with 20 mL's of morphine 20 mg/mL. The needle was withdrawn and a bandage was placed over the puncture site. The infusion rate was reprogrammed and continued at his current dose. The patient tolerated well with no complication. Plan and Disposition:: Patient tolerated the procedure well with no complications and was discharged neurologically intact. Patient will return to clinic on or before their next intrathecal refill date. We will see the patient back in the clinic at the next intrathecal refill. Patient has been instructed to contact the clinic with any concerns before the next appointment. Dr. Benavides has reviewed this note and agrees with this plan of care. This note was dictated using voice recognition software and make contain errors or omissions. -- It Is medically necessary for this patient to continue to have their intrathecal pump refilled at regular intervals. This patient had an intrathecal pain pump implanted after meeting criteria of chronic intractable pain for greater than 3 months and failing conservative treatments. Patient has committed and been compliant to the treatment plan and all planned follow up care. Since implantation of the intrathecal pain pump, the patient has had decreased pain and been more functional. Oral medications have been reduced including intake of oral opioids. Patient continues to do well with intrathecal therapy with decrease in pain symptoms and increase in functional status. Stopping intrathecal medications can lead to life threatening withdrawal, seizures, cardiac arrest, severe pain, and possible . Pumps that are not refilled at regular intervals can be damages and cause and need for replacement. We continually titrate dose and concentration to optimize pain relief and function. We are limited in concentration for certain drugs to safely deliver medications through the pump and stay within the recommendations from the Polyanalgesic Consensus Committee Guidelines. Depending on dose and concentration these pumps may need to be refilled sooner than 3 months as we titrate. A UDS is needed to verify patient's compliance with our office pain contract. This is ordered based off specific treatments related to chronic pain with the potential to abuse certain medications.
[2024-12-26 14:18] VITALS: BP 141/89; PULSE 66; RESP 18; O2SAT 99
[2024-12-26 14:35] VITALS: BP 136/87; PULSE 65; RESP 18; O2SAT 100
== END 2024-12-26 14:35 | disposition home or self-care (01) ==
PROVIDERS: Visit Provider Nurse Practitioner Family
DX: Z45.1 Encounter for adjustment and management of infusion pump (principal); G89.4 Chronic pain syndrome; M51.369 Other intervertebral disc degeneration, lumbar region without mention of lumbar back pain or lower extremity pain; Z79.899 Other long term (current) drug therapy
CPT/HCPCS: 95991

== ENCOUNTER 2025-02-06 08:37 | Day surgery (SDC) | payer MEDICARE, OTHER, SELFPAY ==
[2025-02-06 08:50] VITALS: BP 128/88; PULSE 56; RESP 18; O2SAT 95; BMI 23.0
--- NOTE | 2025-02-06 08:56 | EXP.PM.HP ---
History of Present Illness *Admission Date: 02/06/25 *Reason for visit:: Intrathecal refill; DDD *History of present illness: Same [facility] Disclaimer: The information contained in this section may have been updated after the patient was seen, as this information can be updated by other users. Medical History Insomnia No significant past medical history Surgical History History of back surgery Family History Other Prostate cancer Social History (Updated 02/06/25 @ 08:51 by Esther Martinez RN) Smoking Status: Never smoker alcohol intake: never substance use type: denies use current occupational status: other Travel in the last 8 weeks?: None caffeine: Yes Have you lived/traveled outside [place] in past 30 days?: No Contact w/someone who lives/traveled outside [place] past 30 days?: No Exposure to someone with infectious disease in past 14 days?: No Do you have a fever (greater than 100.4 F or 38 C)?: No Have you tested positive for COVID-19?: No Exposed to someone with COVID-19 in past 14 days?: No Do you have a sore throat?: No Do you have a cough?: No Do you have any weakness?: No Do you have any diarrhea?: No Are you experiencing any unusual bleeding?: No Do you have any muscle aches/pain?: No Do you have any abdominal pain?: No Are you experiencing loss of taste or smell?: No Other Medical History Have you received the Flu Vaccine for this season: Yes Have you received the Pneumonia Vaccine: Yes Review of Systems Review of Systems Review of systems:: pertinent systems reviewed and negative unless documented below Review of systems (narrative): Review of Systems: General: No recent weight changes, no fever, no sleep disturbances Respiratory: No cough, no shortness of air, no recurring pulmonary infections Cardiovascular/peripheral vascular: No chest pain, no palpitations, no edema, no shortness of breath Gastrointestinal: No new onset incontinence, normal bowel movements reported Genitourinary: No new onset incontinence Musculoskeletal: Chronic back pain Psychiatric: [Normal mood/affect] Neurological: [Denies weakness in extremities], [denies balance issues] Meds Home Medications and Allergies Home Medications ?Medication ?Instructions ?Recorded ?Confirmed ?Type amitriptyline 150 mg tablet 150 mg PO HS sleep 12/12/19 12/26/24 History hydroxyzine HCl 25 mg tablet 25 mg PO HS sleep 10/01/23 12/26/24 History New Prescriptions to Start Prescriptions: Allergies Allergy/AdvReac Type Severity Reaction Status Date / Time No Known Allergies Allergy Verified 10/10/24 14:00 Exam Data for Last 24 hours Vital signs and Labs for Last 24 Hours: Pulse Resp BP Pulse Ox O2 Del Method 56 L 18 128/88 95 Room Air 02/06/25 08:50 02/06/25 08:50 02/06/25 08:50 02/06/25 08:50 02/06/25 08:50 I & O for Last 24 hours: Intake & Output 02/03/25 02/04/25 02/05/25 02/06/25 23:59 23:59 23:59 23:59 Weight 170 lb Constitutional Constitutional: no acute distress *Routine HEENT Exam Head: Present normocephalic and atraumatic Eye: Present PERRL ENT: Present mucous membranes moist *Routine Neck Exam Neck: Present supple *Routine Respiratory Exam Respiratory: Present CTA bilaterally *Routine Cardiovascular Exam Cardiovascular: Present RRR *Routine Abdominal Exam Abdominal: Present soft *Routine Rectal Exam Rectal:: deferred *Routine Genitalia Exam Genitalia:: deferred Routine Back/Spine/Pelvis Exam Back/Spine: Present pain with flexion *Routine Skin Exam Skin: Present intact and warm *Routine Neurological Exam Neurological: Present alert and oriented X3 Routine Psychiatric Exam Psychiatric: Present normal affect and normal thought process Assessment and Plan *Assessment and plan (1) Chronic pain syndrome: Status: Acute Category: Medical Code(s): G89.4 - Chronic pain syndrome
--- NOTE | 2025-02-06 08:58 | EXP.PAIN.PRO ---
Procedure Date: 02/06/25 Time: 09:24 Anesthesiologist:: Ninoska Kumar APRN Complications:: None Pre-procedure Diagnosis:: Degenerative disc disease, chronic pain syndrome Post-procedure Diagnosis:: Same Indications for Procedure:: Patient is a pleasant 69-year-old male who presents today for intrathecal refill. He rates his pain today a 7 out of 10. He denies any new falls or injuries from her last appointment. He is currently managed with morphine 20 mg/mL with a daily dose of 7.706 mg/day. He denies any side effects. His Ramo has been reviewed and is appropriate. Physical Exam: General: Alert and oriented x3, no acute distress, pleasant and cooperative Lungs: Respirations even and unlabored, symmetrical chest expansion Eyes: PERRL Musculoskeletal: Flexion and extension of lumbar [spine] somewhat guarded secondary to pain, [antalgic gait noted] Neurological: Speech clear, no gross sensory deficit Procedure Details:: Informed consent was obtained and the risk and benefits of the procedure were explained to the patient. The patient had noninvasive monitoring placed including noninvasive blood pressure cuff and pulse oximeter. Patient's pump was interrogated. The area over the pump was cleansed with chlorhexidine as a cleansing solution. In sterile fashion the pump was accessed with a 22-gauge needle. Approximately 3 mls of the pump solution was removed and discarded appropriately. The pump was then refilled with 20 mL's of morphine 20 mg/mL. The needle was withdrawn and a bandage was placed over the puncture site. The infusion rate was reprogrammed and continued at its current dosage. The patient tolerated well with no complication. Plan and Disposition:: Patient tolerated the procedure well with no complications and was discharged neurologically intact. Patient will return to clinic on or before their next intrathecal refill date. We will see the patient back in the clinic at the next intrathecal refill. Patient has been instructed to contact the clinic with any concerns before the next appointment. Dr. Benavides has reviewed this note and agrees with this plan of care. This note was dictated using voice recognition software and make contain errors or omissions. -- It Is medically necessary for this patient to continue to have their intrathecal pump refilled at regular intervals. This patient had an intrathecal pain pump implanted after meeting criteria of chronic intractable pain for greater than 3 months and failing conservative treatments. Patient has committed and been compliant to the treatment plan and all planned follow up care. Since implantation of the intrathecal pain pump, the patient has had decreased pain and been more functional. Oral medications have been reduced including intake of oral opioids. Patient continues to do well with intrathecal therapy with decrease in pain symptoms and increase in functional status. Stopping intrathecal medications can lead to life threatening withdrawal, seizures, cardiac arrest, severe pain, and possible . Pumps that are not refilled at regular intervals can be damages and cause and need for replacement. We continually titrate dose and concentration to optimize pain relief and function. We are limited in concentration for certain drugs to safely deliver medications through the pump and stay within the recommendations from the Polyanalgesic Consensus Committee Guidelines. Depending on dose and concentration these pumps may need to be refilled sooner than 3 months as we titrate. A UDS is needed to verify patient's compliance with our office pain contract. This is ordered based off specific treatments related to chronic pain with the potential to abuse certain medications.
[2025-02-06 09:06] VITALS: BP 121/81; PULSE 55; RESP 18; O2SAT 97
[2025-02-06 09:30] VITALS: BP 146/72; PULSE 57; RESP 16; O2SAT 97
== END 2025-02-06 09:31 | disposition home or self-care (01) ==
PROVIDERS: PCP Nurse Practitioner Family; Visit Provider Nurse Practitioner Family
DX: Z45.1 Encounter for adjustment and management of infusion pump (principal); G89.4 Chronic pain syndrome; M51.369 Other intervertebral disc degeneration, lumbar region without mention of lumbar back pain or lower extremity pain
CPT/HCPCS: 62370